=== PATIENT | female | born 1935 | race Caucasian/White ===

== ENCOUNTER 2016-10-17 11:46 | Outpatient (CLI) | payer MEDICARE, OTHER | END 2016-10-17 11:47 | disposition home or self-care (01) | DX: Z53.9 Procedure and treatment not carried out, unspecified reason (principal) ==

== ENCOUNTER 2016-11-29 15:07 | Outpatient (CLI) | payer MEDICARE, OTHER | END 2016-11-29 15:08 | disposition home or self-care (01) | DX: M31.30 Wegener's granulomatosis without renal involvement (principal); N05.9 Unspecified nephritic syndrome with unspecified morphologic changes ==

== ENCOUNTER 2016-12-11 10:15 | Outpatient (CLI) | payer MEDICARE, OTHER | END 2016-12-11 10:16 | disposition home or self-care (01) | DX: Z12.31 Encounter for screening mammogram for malignant neoplasm of breast (principal) ==

== ENCOUNTER 2017-01-16 12:30 | Outpatient (CLI) | payer MEDICARE, OTHER ==
[2017-01-16 12:47] LABS: BASOPHILS # (AUTO) 0.1 10^3/uL (0.0-0.1); BASOPHILS % (AUTO) 2.1 %; EOSINOPHILS # (AUTO) 0.3 10^3/uL (0.0-0.7); EOSINOPHILS % (AUTO) 7.1 %; HCT - HEMATOCRIT 29.9 % (37.0-47.0); HGB - HEMOGLOBIN 10.1 g/dL (12.0-16.0); LYMPHOCYTES # (AUTO) 1.1 10^3/uL (1.5-3.5); LYMPHOCYTES % (AUTO) 22.9 %; MEAN CORPUSCULAR HEMOGLOBIN 30.2 pg (27.0-31.0); MEAN CORPUSCULAR HGB CONC 33.9 g/dL (32.0-36.0); MEAN CORPUSCULAR VOLUME 89.1 fL (81.0-99.0); MONOCYTES # (AUTO) 0.4 10^3/uL (0.0-1.0); MONOCYTES % (AUTO) 8.3 %; NEUTROPHILS # (AUTO) 2.8 10^3/uL (1.5-6.6); NEUTROPHILS % (AUTO) 59.6 %; RED BLOOD COUNT 3.36 10^6/uL (4.20-5.40); RED CELL DISTRIBUTION WIDTH 12.9 % (12.0-15.0); UNCORRECTED WHITE BLOOD COUNT 4.6 x10^3/uL; WHITE BLOOD COUNT 4.6 x10^3/uL (4.8-10.8)
[2017-01-16 13:28] LABS: CALCIUM 9.3 mg/dL (8.5-10.3); CREATININE 2.4 mg/dL (0.4-1.0); POTASSIUM 4.6 mmol/L (3.5-5.0)
[2017-01-16 14:04] LABS: FERRITIN 61.9 ng/mL (11.0-306.8)
[2017-01-16 14:08] LABS: FOLATE 10.23 ng/mL (5.90 - >24.8)
== END 2017-01-16 12:31 | disposition home or self-care (01) ==
LOC: LAB 12:30
PROVIDERS: ATTEND Internal Medicine Nephrology
DX: N05.9 Unspecified nephritic syndrome with unspecified morphologic changes (principal); D63.1 Anemia in chronic kidney disease; D50.0 Iron deficiency anemia secondary to blood loss (chronic); D64.9 Anemia, unspecified; N25.81 Secondary hyperparathyroidism of renal origin
CPT/HCPCS: 36415; 80048; 82607; 82728; 82746; 83540; 83970; 84466; 85025

== ENCOUNTER 2017-02-13 11:28 | Outpatient (CLI) | payer MEDICARE, OTHER ==
[2017-02-13 13:03] LABS: HCT - HEMATOCRIT 30.8 % (37.0-47.0); HGB - HEMOGLOBIN 10.3 g/dL (12.0-16.0); MEAN CORPUSCULAR HEMOGLOBIN 30.4 pg (27.0-31.0); MEAN CORPUSCULAR HGB CONC 33.5 g/dL (32.0-36.0); MEAN CORPUSCULAR VOLUME 90.9 fL (81.0-99.0); MEAN PLATELET VOLUME 8.3 fL (7.9-10.8); RED BLOOD COUNT 3.39 10^6/uL (4.20-5.40); RED CELL DISTRIBUTION WIDTH 13.6 % (12.0-15.0); WHITE BLOOD COUNT 9.1 x10^3/uL (4.8-10.8)
[2017-02-13 13:16] LABS: CALCIUM 8.8 mg/dL (8.5-10.3); CREATININE 2.3 mg/dL (0.4-1.0); POTASSIUM 4.4 mmol/L (3.5-5.0)
== END 2017-02-13 11:29 | disposition home or self-care (01) ==
LOC: LAB 11:28
PROVIDERS: ATTEND Internal Medicine Nephrology
DX: D70.9 Neutropenia, unspecified (principal); N05.9 Unspecified nephritic syndrome with unspecified morphologic changes
CPT/HCPCS: 36415; 80048

== ENCOUNTER 2017-02-27 09:34 | Emergency (ER) | payer MEDICARE, OTHER ==
[2017-02-27] MEDS ORDERED: SODIUM CHLORIDE 0.9% 1,000 ML IV ONE ×2 (10:40→10:41)
[2017-02-27] MEDS ORDERED: ONDANSETRON 4 MG/2 ML VIAL IVP STA (10:40)
[2017-02-27] MEDS ORDERED: DEXAMETHASONE 10 MG/ML VIAL IVP STA (10:41)
[2017-02-27] MEDS ORDERED: ONDANSETRON 4 MG/2 ML VIAL ONE (10:48)
[2017-02-27] MEDS ORDERED: DEXAMETHASONE 10 MG/ML VIAL ONE (10:48)
== END 2017-02-27 13:34 | disposition home or self-care (01) ==
DX: E87.1 Hypo-osmolality and hyponatremia (principal); E86.0 Dehydration; N28.9 Disorder of kidney and ureter, unspecified; J11.1 Influenza due to unidentified influenza virus with other respiratory manifestations; I77.6 Arteritis, unspecified

== ENCOUNTER 2017-03-05 10:59 | Outpatient (CLI) | payer MEDICARE, OTHER ==
[2017-03-05 11:12] LABS: BASOPHILS % (AUTO) 0.2 %; EOSINOPHILS # (AUTO) 0.1 10^3/uL (0.0-0.7); HCT - HEMATOCRIT 29.8 % (37.0-47.0); HGB - HEMOGLOBIN 10.3 g/dL (12.0-16.0); LYMPHOCYTES # (AUTO) 0.3 10^3/uL (1.5-3.5); LYMPHOCYTES % (AUTO) 3.6 %; MEAN CORPUSCULAR HEMOGLOBIN 30.2 pg (27.0-31.0); MEAN CORPUSCULAR HGB CONC 34.4 g/dL (32.0-36.0); MEAN CORPUSCULAR VOLUME 87.8 fL (81.0-99.0); MONOCYTES # (AUTO) 0.9 10^3/uL (0.0-1.0); NEUTROPHILS # (AUTO) 6.3 10^3/uL (1.5-6.6); NEUTROPHILS % (AUTO) 83.2 %; NUCLEATED RED BLOOD CELLS AUTO 0.1 /100WBC; RED CELL DISTRIBUTION WIDTH 14.5 % (12.0-15.0); UNCORRECTED WHITE BLOOD COUNT 7.6 x10^3/uL; WHITE BLOOD COUNT 7.6 x10^3/uL (4.8-10.8)
[2017-03-05 11:23] LABS: CALCIUM 9.2 mg/dL (8.5-10.3); CREATININE 2.7 mg/dL (0.4-1.0); POTASSIUM 4.3 mmol/L (3.5-5.0)
== END 2017-03-05 11:00 | disposition home or self-care (01) ==
LOC: LAB 10:59
PROVIDERS: ATTEND Internal Medicine Nephrology
DX: N05.9 Unspecified nephritic syndrome with unspecified morphologic changes (principal)
CPT/HCPCS: 36415; 80048; 85025

== ENCOUNTER 2017-03-14 10:07 | Outpatient (CLI) | payer MEDICARE, OTHER | END 2017-03-14 10:08 | disposition home or self-care (01) | LOC: LAB 10:07 | PROVIDERS: ATTEND Internal Medicine Nephrology | DX: D64.9 Anemia, unspecified (principal) | CPT/HCPCS: 36415; 85018 ==

== ENCOUNTER 2017-03-16 07:49 | Outpatient (CLI) | payer MEDICARE, OTHER | END 2017-03-16 07:50 | disposition home or self-care (01) | LOC: LAB 07:49 | PROVIDERS: ATTEND Internal Medicine Nephrology | DX: D64.9 Anemia, unspecified (principal) | CPT/HCPCS: 36415; 85018 ==

== ENCOUNTER 2017-03-16 08:39 | Emergency (ER) | payer MEDICARE, OTHER ==
[2017-03-16] MEDS ORDERED: SODIUM CHLORIDE 0.9% 1,000 ML IV ONE (09:00)
--- NOTE | 2017-03-16 09:16 | ED Physician Documentation ---
History of Present Illness - Stated complaint Stated Complaint: NAUSEA/WEAKNESS/BLACK STOOL - Chief complaint Chief Complaint: Abd Pain - History obtained from History obtained from: Patient, Family - Additonal information Additional information: The patient is a pleasant 81-year-old female who presents with generalized weakness. She was discharged from [facility] 3 days ago after undergoing stapling of a Dieulafoy's lesion and transfusion of 4 units PRBC's. She had a hemoglobin checked this morning and it was down to 7.1. It had been 8.8 yesterday. She feels generally weak and nauseated. She has had black tarry stools since being discharged from the hospital 3 days ago. She denies abdominal pain, vomiting, shortness of breath, or chest pain. Review of Systems Constitutional: reports: Fatigue. denies: Fever Ears: denies: Tinnitus/ringing Nose: denies: Congestion Throat: denies: Sore throat Cardiac: denies: Chest pain / pressure, Palpitations Respiratory: denies: Dyspnea, Cough GI: reports: Nausea, Bloody / black stool. denies: Abdominal Pain, Vomiting : denies: Dysuria Skin: denies: Rash Musculoskeletal: denies: Back pain Neurologic: reports: Generalized weakness. denies: Focal weakness, Numbness, Headache PD PAST MEDICAL HISTORY - Past Medical History Cardiovascular: Hypertension, High cholesterol GI: GI bleed Musculoskeletal: Osteoarthritis - Past Surgical History Past Surgical History: No General: Appendectomy - Present Medications Home Medications: Ambulatory Orders Medication Instructions Recorded Confirmed Blood Pressure Med 03/11/15 03/11/15 Levothyroxine [Synthroid] 03/11/15 03/11/15 Ondansetron Odt [Zofran] 4 mg TL Q6H PRN #15 tablet 02/27/17 - Allergies Allergies/Adverse Reactions: Allergies Allergy/AdvReac Type Severity Reaction Status Date / Time codeine Allergy Unknown Verified 03/11/15 13:21 penicillin * [penicillin] Allergy Unknown Verified 03/11/15 13:20 Sulfa (Sulfonamide Allergy Unknown Verified 03/11/15 13:20 Antibiotics) - Social History Does the pt smoke?: No Smoking Status: Never smoker Does the pt drink ETOH?: Yes Does the pt have substance abuse?: No PD ED PE NORMAL - Vitals Vital signs reviewed: Yes (tachycardic.) - General General: Alert and oriented X 3, Well developed/nourished - HEENT HEENT: Atraumatic, EOMI, Pharynx benign - Neck Neck: No adenopathy, No JVD - Cardiac Cardiac: No murmur, Other (Rapid rate, regular rhythm) - Respiratory Respiratory: No respiratory distress, Clear bilaterally - Abdomen Abdomen: Soft, Non tender - Back Back: No CVA TTP - Derm Derm: No rash, Other (Pale-appearing.) - Extremities Extremities: No edema, No calf tenderness / cord - Neuro Neuro: Alert and oriented X 3, No motor deficit, Normal speech Results - Vitals Vitals: Vital Signs - 24 hr 03/16/17 03/16/17 03/16/17 10:35 11:40 11:55 Temperature 37.2 C 37.2 C Heart Rate 107 H 100 102 H Respiratory 18 18 18 Rate Blood Pressure 137/64 H 114/65 122/61 O2 Saturation 98 98 97 03/16/17 03/16/17 03/16/17 12:10 12:56 13:35 Temperature 37.2 C 37.0 C Heart Rate 99 102 H 91 Respiratory 17 18 18 Rate Blood Pressure 125/65 117/63 136/62 H O2 Saturation 97 97 97 03/16/17 13:50 Temperature 37.2 C Heart Rate 104 H Respiratory 18 Rate Blood Pressure 127/64 O2 Saturation 98 Oxygen O2 Source Room air - Labs Labs: Laboratory Tests 03/16/17 03/16/17 03/16/17 07:55 09:16 09:16 WBC 7.7 RBC 2.33 L Hgb 7.2 L Hct 21.2 L MCV 91.1 MCH 30.7 MCHC 33.7 RDW 16.5 H Plt Count 189 MPV 7.5 L Neut # 7.1 H Lymph # 0.2 L [place] # 0.2 Eos # 0.1 Baso # 0.0 Absolute Nucleated RBC 0.01 Nucleated RBCs 0.1 PT INR Sodium 136 Potassium 4.0 Chloride 104 Carbon Dioxide 23 Anion Gap 9.0 BUN 55 H Creatinine 2.2 H Estimated GFR (MDRD) 21 L Glucose 131 H Calcium 8.5 Total Bilirubin 0.3 AST 20 ALT 18 Alkaline Phosphatase 64 Total Protein 5.1 L Albumin 2.6 L Globulin 2.5 Albumin/Globulin Ratio 1.0 Lipase 101 H Blood Type Blood Type Recheck A POSITIVE Antibody Screen Crossmatch IS Only 07/21/17 07/21/17 09:16 09:45 WBC RBC Hgb Hct MCV MCH MCHC RDW Plt Count MPV Neut # Lymph # [place] # Eos # Baso # Absolute Nucleated RBC Nucleated RBCs PT 11.1 INR 1.0 Sodium Potassium Chloride Carbon Dioxide Anion Gap BUN Creatinine Estimated GFR (MDRD) Glucose Calcium Total Bilirubin AST ALT Alkaline Phosphatase Total Protein Albumin Globulin Albumin/Globulin Ratio Lipase Blood Type A POSITIVE Blood Type Recheck Antibody Screen NEGATIVE Crossmatch IS Only See Detail PD MEDICAL DECISION MAKING - ED course Complexity details: reviewed old records, reviewed results, re-evaluated patient , considered differential, d/w patient, d/w family, d/w food consultant ED course: The patient's presentation is significant for profound anemia and melena status post stapling of a Dieulafoy lesion of the duodenum. Her hemoglobin has dropped from 8.8 yesterday morning, to 7.1 this morning. She has generalized weakness and is tachycardic. She denies chest pain, dyspnea, or vomiting. Treatment in the emergency department included administration of normal saline IV, pantoprazole 80 mg bolus followed by 8 mg/h infusion, and packed red blood cell transfusion. I discussed her condition with Dr. Oliva, physiotherapy assistant at [facility]. He suggested having the patient scoped at this hospital if possible. I discussed that with the patient and her family, and they prefer to be transferred to [facility] where the initial procedure was performed, and because her sales manager, Dr. Jenkins, can be involved in her care there. I discussed her condition with Dr. Schwartz, Hospitalist at [facility], and he will accept her in transfer. Transfer forms were completed. Departure - Departure Disposition: 02 Transfer Acute Care Hosp Clinical Impression: Dieulafoy lesion of duodenum, Profound anemia GI bleeding Qualifiers: GI bleed type/associated pathology: melena Qualified Code(s): K92.1 - Melena Discharge Date/Time: 03/16/17 13:50
[2017-03-16 09:35] LABS: BASOPHILS % (AUTO) 0.6 %; EOSINOPHILS # (AUTO) 0.1 10^3/uL (0.0-0.7); EOSINOPHILS % (AUTO) 0.7 %; HCT - HEMATOCRIT 21.2 % (37.0-47.0); HGB - HEMOGLOBIN 7.2 g/dL (12.0-16.0); LYMPHOCYTES # (AUTO) 0.2 10^3/uL (1.5-3.5); LYMPHOCYTES % (AUTO) 2.7 %; MEAN CORPUSCULAR HEMOGLOBIN 30.7 pg (27.0-31.0); MEAN CORPUSCULAR HGB CONC 33.7 g/dL (32.0-36.0); MEAN CORPUSCULAR VOLUME 91.1 fL (81.0-99.0); MEAN PLATELET VOLUME 7.5 fL (7.9-10.8); MONOCYTES # (AUTO) 0.2 10^3/uL (0.0-1.0); NEUTROPHILS # (AUTO) 7.1 10^3/uL (1.5-6.6); NUCLEATED RED BLOOD CELLS AUTO 0.1 /100WBC; RED BLOOD COUNT 2.33 10^6/uL (4.20-5.40); RED CELL DISTRIBUTION WIDTH 16.5 % (12.0-15.0); UNCORRECTED WHITE BLOOD COUNT 7.7 x10^3/uL; WHITE BLOOD COUNT 7.7 x10^3/uL (4.8-10.8)
[2017-03-16 09:48] LABS: BILIRUBIN,TOTAL 0.3 mg/dL (0.2-1.0); CALCIUM 8.5 mg/dL (8.5-10.3); CREATININE 2.2 mg/dL (0.4-1.0); TOTAL PROTEIN 5.1 g/dL (6.7-8.2)
[2017-03-16 09:57] LABS: PT - PROTHROMBIN TIME 11.1 secs (9.9-12.6)
[2017-03-16] MEDS ORDERED: PANTOPRAZOLE 80 MG in SODIUM CHLORIDE 0.9% 100ML 100 ML IV STA ×2 (10:54→10:56)
[2017-03-16] MEDS ORDERED: PANTOPRAZOLE 40 MG VIAL ONE (11:06)
[2017-03-16 14:02] VITALS: BP 127/64
== END 2017-03-16 13:50 | disposition short-term general hospital (02) ==
LOC: ED 08:39
DX: K92.1 Melena (principal); I10 Essential (primary) hypertension; D64.9 Anemia, unspecified
CPT/HCPCS: 36415; 36430; 80053; 83690; 85018; 85025; 85610; 86850; 86900; 86901; 86920; 96374; 96376; 99284; 99285; P9016

== ENCOUNTER 2017-03-16 13:56 | Outpatient (CLI) | payer MEDICARE, OTHER | END 2017-03-16 13:57 | disposition short-term general hospital (02) | LOC: EMS 13:56 | PROVIDERS: ATTEND Surgery | DX: K92.2 Gastrointestinal hemorrhage, unspecified (principal); R53.1 Weakness | CPT/HCPCS: A0425; A0426 ==

== ENCOUNTER 2017-03-28 02:22 | Emergency (ER) | payer MEDICARE, OTHER ==
--- NOTE | 2017-03-28 03:25 | ED Physician Documentation ---
PD HPI ABD PAIN - Stated complaint Stated Complaint: ABD CRAMPS/CONSTIPATED - Chief complaint Chief Complaint: Abd Pain - History obtained from History obtained from: Patient, Family - History of Present Illness Timing - onset: How many days ago (2) Timing - details: Gradual onset Pain level now: 5 Quality: Cramping, Pain Location: Other (across lower abdomen) Improved by: Other (no ameliorating factors) Worsened by: Other (no exacerbating factors) Associated symptoms: Constipation, Melena, Hematochezia. No: Fever, Nausea, Vomiting, Diarrhea Similar symptoms before: Has not had sx before Recently seen: Admitted - Additional information Additional information: discharged few days ago from [place], had multiple duodenal clips placed due to bleeding ulcers which had been causing GI bleeding requiring transfusions. she c/o constipation; urge to defecate with no BM x 2 days Review of Systems Constitutional: reports: Reviewed and negative Eyes: reports: Reviewed and negative Ears: reports: Reviewed and negative Nose: reports: Reviewed and negative Throat: reports: Reviewed and negative Cardiac: reports: Reviewed and negative Respiratory: reports: Reviewed and negative GI: reports: Abdominal Pain, Constipation : reports: Reviewed and negative Skin: reports: Reviewed and negative Musculoskeletal: reports: Reviewed and negative Neurologic: reports: Reviewed and negative PD PAST MEDICAL HISTORY - Past Medical History Past Medical History: Yes Cardiovascular: Hypertension, High cholesterol Respiratory: None Neuro: None Endocrine/Autoimmune: Other GI: GI bleed 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 : None HEENT: None Psych: Depression Musculoskeletal: Osteoarthritis Derm: None - Past Surgical History Past Surgical History: No General: Appendectomy - Present Medications Home Medications: Ambulatory Orders Medication Instructions Recorded Confirmed Ondansetron Odt [Zofran] 4 mg TL Q6H PRN #15 tablet 02/27/17 03/28/17 Calcium Carbonate [Tums (Calcium 1,500 mg PO DAILY PM 03/28/17 03/28/17 Carbonate 500mg)] Folic Acid 5 mg PO DAILY 03/28/17 03/28/17 Metoclopramide [Reglan] 5 mg PO QID 03/28/17 03/28/17 Pantoprazole [Protonix] 40 mg PO DAILY 03/28/17 03/28/17 Simethicone [Gas Relief] 80 mg PO QID 03/28/17 03/28/17 - Allergies Allergies/Adverse Reactions: Allergies Allergy/AdvReac Type Severity Reaction Status Date / Time codeine Allergy Unknown Verified 03/11/15 13:21 lovastatin Allergy Hallucinati Verified 03/28/17 02:39 ons penicillin * [penicillin] Allergy Unknown Verified 03/11/15 13:20 Sulfa (Sulfonamide Allergy Unknown Verified 03/11/15 13:20 Antibiotics) - Social History Does the pt smoke?: No Smoking Status: Never smoker Does the pt drink ETOH?: Yes Does the pt have substance abuse?: No - Immunizations Immunizations are current?: Yes PD ED PE NORMAL - Vitals Vital signs reviewed: Yes - General General: Alert and oriented X 3, No acute distress, Well developed/nourished - HEENT HEENT: PERRL, EOMI, Moist mucous membranes - Neck Neck: Supple, no meningeal sign - Cardiac Cardiac: RRR, No murmur, No gallop, No rub - Respiratory Respiratory: No respiratory distress, Clear bilaterally - Abdomen Abdomen: Soft, Non distended - Derm Derm: Normal color, Warm and dry - Extremities Extremities: No tenderness to palpate, No edema - Neuro Neuro: Alert and oriented X 3 PD ED PE EXPANDED - Abdomen Abdomen: Tender to palpation, Rebound Results - Vitals Vitals: Oxygen O2 Source Room air - Labs Labs: Laboratory Tests 03/28/17 03/28/17 03:43 03:43 WBC 1.4 L* RBC 3.32 L Hgb 10.3 L Hct 30.6 L MCV 92.2 MCH 31.0 MCHC 33.6 RDW 17.0 H Plt Count 198 MPV 7.3 L Neut # 1.1 L Lymph # 0.[address] # 0.1 Eos # 0.1 Baso # 0.0 Absolute Nucleated RBC 0.00 Nucleated RBCs 0.1 Manual Slide Review Indicated WBC Morphology NORMAL APPEARANCE Platelet Estimate NORMAL (130-450,000) Platelet Morphology NORMAL APPEARANCE RBC Morph Micro Appear NORMAL APPEARANCE Sodium 140 Potassium 4.0 Chloride 107 Carbon Dioxide 25 Anion Gap 8.0 BUN 25 H Creatinine 2.4 H Estimated GFR (MDRD) 19 L Glucose 112 H Calcium 8.9 Total Bilirubin 0.4 AST 16 ALT 15 Alkaline Phosphatase 79 Total Protein 4.9 L Albumin 2.5 L Globulin 2.4 Albumin/Globulin Ratio 1.0 Lipase 57 H - Rads (name of study) CT A/P Radiology: Prelim report reviewed, See rad report PD MEDICAL DECISION MAKING - ED course Complexity details: reviewed results, re-evaluated patient, considered differential, d/w patient Departure - Departure Disposition: 02 Transfer Acute Care Hosp Clinical Impression: Renal insufficiency, Pneumoperitoneum Condition: Stable Discharge Date/Time: 03/28/17 06:07
[2017-03-28 03:51] LABS: BASOPHILS % (AUTO) 0.9 %; EOSINOPHILS # (AUTO) 0.1 10^3/uL (0.0-0.7); EOSINOPHILS % (AUTO) 5.8 %; HCT - HEMATOCRIT 30.6 % (37.0-47.0); HGB - HEMOGLOBIN 10.3 g/dL (12.0-16.0); LYMPHOCYTES # (AUTO) 0.1 10^3/uL (1.5-3.5); LYMPHOCYTES % (AUTO) 10.5 %; MEAN CORPUSCULAR HGB CONC 33.6 g/dL (32.0-36.0); MEAN CORPUSCULAR VOLUME 92.2 fL (81.0-99.0); MEAN PLATELET VOLUME 7.3 fL (7.9-10.8); MONOCYTES # (AUTO) 0.1 10^3/uL (0.0-1.0); MONOCYTES % (AUTO) 5.1 %; NEUTROPHILS # (AUTO) 1.1 10^3/uL (1.5-6.6); NEUTROPHILS % (AUTO) 77.7 %; NUCLEATED RED BLOOD CELLS AUTO 0.1 /100WBC; RED BLOOD COUNT 3.32 10^6/uL (4.20-5.40); UNCORRECTED WHITE BLOOD COUNT 1.4 x10^3/uL
[2017-03-28 03:55] LABS: WHITE BLOOD COUNT 1.4 x10^3/uL (4.8-10.8)
[2017-03-28 04:01] LABS: BILIRUBIN,TOTAL 0.4 mg/dL (0.2-1.0); CALCIUM 8.9 mg/dL (8.5-10.3); CREATININE 2.4 mg/dL (0.4-1.0); TOTAL PROTEIN 4.9 g/dL (6.7-8.2)
--- NOTE | 2017-03-28 04:25 | CT Preliminary Report ---
Exam: CT Abdomen/Pelvis W/O IMPRESSION: 1. Mild to moderate upper abdominal pneumoperitoneum, likely related to peptic ulcer disease. Stomach is edematous and there could be a gastric perforation. Patient also has multiple duodenal clips, pre sumably from previous duodenal ulcers. 2. Small hiatal hernia. 3. Small to moderate right and small left pleural effusions with adjacent atelectasis. 4. Moderate stool burden. RADIA The above critical findings were discussed with Lopez by Dr. Shreyas Cutler at 04:24 hrs on . SITE ID: [id number]
[2017-03-28 04:30] LABS: PLATELET ESTIMATE, MANUAL NORMAL (130-450,000) (NORMAL); PLATELET MORPHOLOGY NORMAL APPEARANCE (NORMAL); WBC MORPHOLOGY (MULTIPLE) NORMAL APPEARANCE (NORMAL)
--- NOTE | 2017-03-28 04:38 | CT Report ---
EXAM: CT ABDOMEN AND PELVIS (CT KUB) EXAM DATE: 03/28/2017 04:13 AM. CLINICAL HISTORY: Abdominal pain. COMPARISONS: None. TECHNIQUE: Routine axial helical CT imaging was performed through the abdomen and pelvis without IV c ontrast. No IV contrast due to reported renal insufficiency. Reconstructions: Coronal and sagittal. In accordance with CT protocol optimization, one or more of the following dose reduction techniques w ere utilized for this exam: automated exposure control, adjustment of mA and/or KV based on patient s ize, or use of iterative reconstructive technique. FINDINGS: Lung Bases: Fynss-ne-bpphtekt right and small left pleural effusions with adjacent atelectasis. Small hiatal hernia. Small pericardial effusion. Right Kidney/Ureter: No stones, hydronephrosis, or hydroureter. No perinephric fat stranding. Left Kidney/Ureter: No stones, hydronephrosis, or hydroureter. No perinephric fat stranding. Other Solid Organs: Noncontrast images of the solid organs are grossly unremarkable. Gallbladder/Bile Ducts: Unremarkable. Peritoneal Cavity: Mild to moderate upper abdominal pneumoperitoneum with an edematous stomach. Diffu se peritoneal injection and thickening. No abscess. Multiple duodenal clips. No bowel obstruction. Moderate stool burden. Pelvic Organs: No bladder stones or wall thickening. Noncontrast images of the visualized pelvic orga ns are unremarkable. Vasculature: Unremarkable. Other: Chronic-appearing moderate L1 compression fracture. No definite acute osseous abnormality. IMPRESSION: 1. Mild to moderate upper abdominal pneumoperitoneum, likely related to peptic ulcer disease. Stomach is edematous and there could be a gastric perforation. Patient also has multiple duodenal clips, pre sumably from previous duodenal ulcers. 2. Small hiatal hernia. 3. Small to moderate right and small left pleural effusions with adjacent atelectasis. 4. Moderate stool burden. RADIA The above critical findings were discussed with Lopez by Dr. Shreyas Cutler at 04:24 hrs on . Referring Provider Line: [phone] SITE ID: [id number]
[2017-03-28 05:28] VITALS: BP 131/76
[2017-03-28] MEDS ORDERED: cefTRIAXone 1 GM in SODIUM CHLORIDE 0.9% MINIBAG 100 ML IV STA (05:28)
[2017-03-28] MEDS ORDERED: metroNIDAZOLE 500 MG/100 ML 100 ML IV ONE (05:34)
[2017-03-28] MEDS ORDERED: SODIUM CHLORIDE 0.9% 1,000 ML IV STA (05:38)
[2017-03-28] MEDS ORDERED: cefTRIAXone 1 GM VIAL ONE (05:40)
[2017-03-28] MEDS ORDERED: metroNIDAZOLE 500 MG/100 ML 100 ML ONE (05:40)
[2017-03-28] MEDS ORDERED: SODIUM CHLORIDE 0.9% 30 ML ONE (05:41)
== END 2017-03-28 06:07 | disposition short-term general hospital (02) ==
LOC: ED 02:22
DX: N28.9 Disorder of kidney and ureter, unspecified (principal); J18.9 Pneumonia, unspecified organism; K66.8 Other specified disorders of peritoneum; I10 Essential (primary) hypertension
CPT/HCPCS: 36415; 74176; 80053; 83690; 85025; 96365; 96375; 99283; 99284; 99285

== ENCOUNTER 2017-03-28 06:18 | Outpatient (CLI) | payer MEDICARE, OTHER | END 2017-03-28 06:19 | disposition short-term general hospital (02) | LOC: EMS 06:18 | PROVIDERS: ATTEND Surgery | DX: R10.9 Unspecified abdominal pain (principal) | CPT/HCPCS: A0170; A0425; A0426 ==

== ENCOUNTER 2017-04-04 10:02 | Outpatient (CLI) | payer MEDICARE, OTHER ==
[2017-04-04 10:56] LABS: HCT - HEMATOCRIT 30.6 % (37.0-47.0); HGB - HEMOGLOBIN 10.2 g/dL (12.0-16.0); MEAN CORPUSCULAR HEMOGLOBIN 30.3 pg (27.0-31.0); MEAN CORPUSCULAR HGB CONC 33.4 g/dL (32.0-36.0); MEAN CORPUSCULAR VOLUME 90.6 fL (81.0-99.0); MEAN PLATELET VOLUME 7.3 fL (7.9-10.8); RED BLOOD COUNT 3.38 10^6/uL (4.20-5.40); RED CELL DISTRIBUTION WIDTH 17.4 % (12.0-15.0); WHITE BLOOD COUNT 5.8 x10^3/uL (4.8-10.8)
[2017-04-04 11:06] LABS: ALBUMIN/GLOBULIN RATIO 0.6 (1.0-2.2); BILIRUBIN,TOTAL 0.7 mg/dL (0.2-1.0); CALCIUM 8.2 mg/dL (8.5-10.3); CREATININE 1.9 mg/dL (0.4-1.0); TOTAL PROTEIN 4.9 g/dL (6.7-8.2)
== END 2017-04-04 10:03 | disposition home or self-care (01) ==
LOC: LAB 10:02
PROVIDERS: ATTEND Internal Medicine Nephrology
DX: D70.9 Neutropenia, unspecified (principal); N05.9 Unspecified nephritic syndrome with unspecified morphologic changes
CPT/HCPCS: 36415; 80053

== ENCOUNTER 2017-04-10 09:29 | Outpatient (CLI) | payer MEDICARE, OTHER ==
[2017-04-10 09:49] LABS: BASOPHILS # (AUTO) 0.1 10^3/uL (0.0-0.1); BASOPHILS % (AUTO) 1.3 %; EOSINOPHILS # (AUTO) 0.1 10^3/uL (0.0-0.7); EOSINOPHILS % (AUTO) 1.6 %; HCT - HEMATOCRIT 29.1 % (37.0-47.0); HGB - HEMOGLOBIN 9.7 g/dL (12.0-16.0); LYMPHOCYTES # (AUTO) 0.3 10^3/uL (1.5-3.5); LYMPHOCYTES % (AUTO) 3.1 %; MEAN CORPUSCULAR HEMOGLOBIN 29.8 pg (27.0-31.0); MEAN CORPUSCULAR HGB CONC 33.2 g/dL (32.0-36.0); MEAN CORPUSCULAR VOLUME 89.8 fL (81.0-99.0); MEAN PLATELET VOLUME 7.4 fL (7.9-10.8); MONOCYTES # (AUTO) 0.6 10^3/uL (0.0-1.0); MONOCYTES % (AUTO) 6.5 %; NEUTROPHILS # (AUTO) 7.9 10^3/uL (1.5-6.6); NEUTROPHILS % (AUTO) 87.5 %; RED BLOOD COUNT 3.25 10^6/uL (4.20-5.40); RED CELL DISTRIBUTION WIDTH 17.6 % (12.0-15.0); UNCORRECTED WHITE BLOOD COUNT 9.1 x10^3/uL; WHITE BLOOD COUNT 9.1 x10^3/uL (4.8-10.8)
[2017-04-10 09:59] LABS: CALCIUM 7.9 mg/dL (8.5-10.3); CREATININE 2.2 mg/dL (0.4-1.0); POTASSIUM 3.5 mmol/L (3.5-5.0)
== END 2017-04-10 09:30 | disposition home or self-care (01) ==
LOC: LAB 09:29
PROVIDERS: ATTEND Internal Medicine Nephrology
DX: N05.9 Unspecified nephritic syndrome with unspecified morphologic changes (principal); D70.9 Neutropenia, unspecified
CPT/HCPCS: 36415; 80048; 85025

== ENCOUNTER 2017-05-03 10:57 | Outpatient (CLI) | payer MEDICARE, OTHER ==
[2017-05-03 11:21] LABS: CALCIUM 8.4 mg/dL (8.5-10.3); HCT - HEMATOCRIT 28.6 % (37.0-47.0); HGB - HEMOGLOBIN 9.4 g/dL (12.0-16.0); MEAN CORPUSCULAR HEMOGLOBIN 29.2 pg (27.0-31.0); MEAN CORPUSCULAR HGB CONC 32.7 g/dL (32.0-36.0); MEAN CORPUSCULAR VOLUME 89.2 fL (81.0-99.0); MEAN PLATELET VOLUME 7.3 fL (7.9-10.8); POTASSIUM 4.7 mmol/L (3.5-5.0); RED BLOOD COUNT 3.21 10^6/uL (4.20-5.40); RED CELL DISTRIBUTION WIDTH 18.5 % (12.0-15.0)
== END 2017-05-03 10:58 | disposition home or self-care (01) ==
LOC: LAB 10:57
PROVIDERS: ATTEND Internal Medicine Nephrology
DX: N05.9 Unspecified nephritic syndrome with unspecified morphologic changes (principal); D63.1 Anemia in chronic kidney disease; D70.9 Neutropenia, unspecified
CPT/HCPCS: 36415; 80048

== ENCOUNTER 2017-08-07 13:16 | Outpatient (CLI) | payer MEDICARE, OTHER ==
[2017-08-07 13:29] LABS: BASOPHILS % (AUTO) 0.8 %; EOSINOPHILS # (AUTO) 0.2 10^3/uL (0.0-0.7); EOSINOPHILS % (AUTO) 5.4 %; HCT - HEMATOCRIT 33.2 % (37.0-47.0); HGB - HEMOGLOBIN 11.2 g/dL (12.0-16.0); LYMPHOCYTES # (AUTO) 0.7 10^3/uL (1.5-3.5); LYMPHOCYTES % (AUTO) 18.1 %; MEAN CORPUSCULAR HEMOGLOBIN 28.7 pg (27.0-31.0); MEAN CORPUSCULAR HGB CONC 33.7 g/dL (32.0-36.0); MEAN CORPUSCULAR VOLUME 85.1 fL (81.0-99.0); MEAN PLATELET VOLUME 7.4 fL (7.9-10.8); MONOCYTES # (AUTO) 0.4 10^3/uL (0.0-1.0); MONOCYTES % (AUTO) 9.4 %; NEUTROPHILS # (AUTO) 2.5 10^3/uL (1.5-6.6); NEUTROPHILS % (AUTO) 66.3 %; RED BLOOD COUNT 3.89 10^6/uL (4.20-5.40); RED CELL DISTRIBUTION WIDTH 14.6 % (12.0-15.0); UNCORRECTED WHITE BLOOD COUNT 3.7 x10^3/uL; WHITE BLOOD COUNT 3.7 x10^3/uL (4.8-10.8)
[2017-08-07 13:38] LABS: CREATININE 1.9 mg/dL (0.4-1.0); POTASSIUM 4.3 mmol/L (3.5-5.0)
== END 2017-08-07 13:17 | disposition home or self-care (01) ==
LOC: LAB 13:16
PROVIDERS: ATTEND Internal Medicine Nephrology
DX: N05.9 Unspecified nephritic syndrome with unspecified morphologic changes (principal); D70.9 Neutropenia, unspecified; E03.9 Hypothyroidism, unspecified
CPT/HCPCS: 36415; 80048; 84443; 85025

== ENCOUNTER 2017-08-29 07:31 | Day surgery (SDC) | payer MEDICARE, OTHER ==
[2017-08-29] MEDS ORDERED: LACTATED RINGERS 1,000 ML IV ONE (07:52)
[2017-08-29] MEDS ORDERED: fentaNYL 100 MCG/2 ML VIAL IVP ONE (08:43)
[2017-08-29] MEDS ORDERED: MIDAZOLAM 2 MG/2 ML VIAL IVP ONE (08:43)
[2017-08-29 09:37] VITALS: BP 127/66
== END 2017-08-29 07:32 | disposition home or self-care (01) ==
LOC: SDS 07:31
PROVIDERS: ATTEND Internal Medicine
PROC: 0DJ08ZZ Inspection of Upper Intestinal Tract, Via Natural or Artificial Opening Endoscopic (ICD-10-PCS; principal; 2017-08-29 08:30)
DX: D50.9 Iron deficiency anemia, unspecified (principal); K44.9 Diaphragmatic hernia without obstruction or gangrene; Z87.19 Personal history of other diseases of the digestive system
CPT/HCPCS: 43235; J7120

== ENCOUNTER 2017-09-12 09:20 | Outpatient (CLI) | payer MEDICARE, OTHER | END 2017-09-12 09:21 | disposition home or self-care (01) | LOC: LAB 09:20 | PROVIDERS: ATTEND Internal Medicine Nephrology | DX: E03.9 Hypothyroidism, unspecified (principal) | CPT/HCPCS: 36415; 84443 ==

== ENCOUNTER 2017-10-29 10:38 | Outpatient (CLI) | payer MEDICARE, OTHER ==
[2017-10-29 10:55] LABS: HGB - HEMOGLOBIN 11.7 g/dL (12.0-16.0); MEAN CORPUSCULAR HEMOGLOBIN 29.4 pg (27.0-31.0); MEAN CORPUSCULAR HGB CONC 33.7 g/dL (32.0-36.0); MEAN CORPUSCULAR VOLUME 87.3 fL (81.0-99.0); MEAN PLATELET VOLUME 7.7 fL (7.9-10.8); RED BLOOD COUNT 3.97 10^6/uL (4.20-5.40); RED CELL DISTRIBUTION WIDTH 14.3 % (12.0-15.0); WHITE BLOOD COUNT 3.9 x10^3/uL (4.8-10.8)
[2017-10-29 11:03] LABS: CREATININE 1.8 mg/dL (0.4-1.0)
== END 2017-10-29 10:39 | disposition home or self-care (01) ==
LOC: LAB 10:38
PROVIDERS: ATTEND Internal Medicine Nephrology
DX: N05.9 Unspecified nephritic syndrome with unspecified morphologic changes (principal); D70.9 Neutropenia, unspecified; D63.1 Anemia in chronic kidney disease
CPT/HCPCS: 36415; 80048

== ENCOUNTER 2018-02-04 | Emergency (ER) | payer MEDICARE, OTHER ==
--- NOTE | 2018-02-04 15:13 | ED Physician Documentation ---
PD HPI UPPER EXT INJURY - Stated complaint Stated Complaint: L ARM SCRATCH - Chief complaint Chief Complaint: Laceration - History obtained from History obtained from: Patient, Friend - History of Present Illness Location: Left, Forearm Type of injury: Other (dog scratch) Where injury occurred: Home Timing - onset: How many days ago (3) Timing - duration: Days (3) Timing - details: Abrupt onset, Still present Improved by: Rest, Dressing Worsened by: Moving, Palpating Associated symptoms: No: Weakness, Numbness, Tingling, Swelling, Discolored Similar symptoms before: Has not had sx before Recently seen: Not recently seen - Additonal information Additional information: 82-year-old female who has a Siberian husky puppy for a PET was playing with her dog when the dog scratched her arm. She has some thin skin and it tore the skin she is placed the skin back and she has been wearing a Band-Aid over this. A friend of hers has seen her wound now and has asked her to come to the emergency department for alternative forms of treatment. Review of Systems Constitutional: denies: Fever, Chills Eyes: denies: Decreased vision Ears: denies: Ear pain Nose: denies: Congestion Respiratory: denies: Cough GI: denies: Vomiting Skin: reports: Laceration (s). denies: Rash Musculoskeletal: reports: Extremity pain. 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 : None HEENT: None Psych: Depression Musculoskeletal: Osteoarthritis Derm: Eczema - Past Surgical History Past Surgical History: No General: Appendectomy - Present Medications Home Medications: Ambulatory Orders Medication Instructions Recorded Confirmed Pantoprazole [Protonix] 40 mg PO DAILY 03/28/17 08/29/17 Levothyroxine [Synthroid] 75 mcg PO QDAC 06/15/17 06/15/17 Nifedipine [Nifedipine ER] 30 mg PO DAILY 08/28/17 08/29/17 Cholecalciferol [Vitamin D3] 5,000 unit PO 08/29/17 - Allergies Allergies/Adverse Reactions: Allergies Allergy/AdvReac Type Severity Reaction Status Date / Time codeine Allergy Unknown Verified 02/04/18 14:49 lovastatin Allergy Hallucinati Verified 06/11/18 14:49 ons penicillin * [penicillin] Allergy Unknown Verified 02/04/18 14:49 prednisone Allergy Unknown Verified 02/04/18 14:49 Sulfa (Sulfonamide Allergy Unknown Verified 02/04/18 14:49 Antibiotics) - Social History Does the pt smoke?: No Smoking Status: Never smoker Does the pt drink ETOH?: Yes Does the pt have substance abuse?: No - Immunizations Immunizations are current?: Yes PD ED PE NORMAL - Vitals Vital signs reviewed: Yes (tachy and hypertensive ) - General General: No acute distress, Well developed/nourished - HEENT HEENT: Atraumatic, PERRL - Respiratory Respiratory: No respiratory distress - Derm Derm: Normal color, Warm and dry, No rash - Extremities Extremities: No deformity, No edema, Other (There are 2 thin skin tears on the lft forearm over the brachioradialis.There is no surrounding erythema or drainage to suggest infection. The wound appears to be granulating well. There is a mismatch to the orientation of the flaps. distal n/v is intact. ) - Neuro Neuro: No motor deficit, No sensory deficit Eye Opening: Spontaneous Motor: Obeys Commands Verbal: Oriented GCS Score: 15 - Psych Psych: Normal mood, Normal affect Results - Vitals Vitals: Vital Signs - 24 hr 02/04/18 02/04/18 14:45 15:25 Temperature 36.7 C 36.6 C Heart Rate 109 H 96 Respiratory 18 18 Rate Blood Pressure 147/80 H 153/80 H O2 Saturation 96 97 Oxygen O2 Source Room air PD MEDICAL DECISION MAKING - ED course Complexity details: re-evaluated patient, considered differential, d/w patient ED course: 82-year-old female with thin skin avulsion to the left forearm has a flap mismatch at 3 days into the wound. I have offered to open the wound again and realign the flaps and the patient is not interested in this. She is interested in localized wound care and instructions on treatment. I have indicated to the patient that she should heal up with his well and that time for healing is approximately 3 weeks. - Sepsis Event Vital Signs: Vital Signs - 24 hr 18 02/04/18 14:45 15:25 Temperature 36.7 C 36.6 C Heart Rate 109 H 96 Respiratory 18 18 Rate Blood Pressure 147/80 H 153/80 H O2 Saturation 96 97 Oxygen O2 Source Room air Departure - Departure Disposition: 01 Home, Self Care Clinical Impression: Avulsion of skin of forearm Qualifiers: Encounter type: initial encounter Laterality: left Qualified Code(s): S51.802A - Unspecified open wound of left forearm, initial encounter Condition: Stable Instructions: ED Avulsion Dermal Follow-Up: Yanira Lake PA [Primary Care Provider] - Discharge Date/Time: 02/04/18 15:28
== END 2018-02-04 15:28 | disposition home or self-care (01) ==
CPT/HCPCS: 99281; 99283

== ENCOUNTER 2018-04-30 09:54 | Outpatient (CLI) | payer MEDICARE, OTHER ==
[2018-04-30 10:45] LABS: CALCIUM 9.2 mg/dL (8.5-10.3); CREATININE 2.2 mg/dL (0.4-1.0)
== END 2018-04-30 09:55 | disposition home or self-care (01) ==
LOC: LAB 09:54
PROVIDERS: ATTEND Internal Medicine Nephrology
DX: N05.9 Unspecified nephritic syndrome with unspecified morphologic changes (principal)
CPT/HCPCS: 36415; 80048

== ENCOUNTER 2018-06-03 10:08 | Outpatient (CLI) | payer MEDICARE, OTHER ==
[2018-06-03 10:31] LABS: BASOPHILS % (AUTO) 1.1 %; EOSINOPHILS # (AUTO) 0.2 10^3/uL (0.0-0.7); EOSINOPHILS % (AUTO) 5.3 %; HGB - HEMOGLOBIN 12.2 g/dL (12.0-16.0); LYMPHOCYTES # (AUTO) 0.6 10^3/uL (1.5-3.5); LYMPHOCYTES % (AUTO) 14.6 %; MEAN CORPUSCULAR HEMOGLOBIN 30.3 pg (27.0-31.0); MEAN CORPUSCULAR HGB CONC 33.8 g/dL (32.0-36.0); MEAN CORPUSCULAR VOLUME 89.5 fL (81.0-99.0); MEAN PLATELET VOLUME 8.3 fL (7.9-10.8); MONOCYTES # (AUTO) 0.3 10^3/uL (0.0-1.0); MONOCYTES % (AUTO) 7.8 %; NEUTROPHILS % (AUTO) 71.2 %; PLT - PLATELET COUNT 207 10^3/uL (130-450); RED BLOOD COUNT 4.02 10^6/uL (4.20-5.40); RED CELL DISTRIBUTION WIDTH 13.6 % (12.0-15.0); WHITE BLOOD COUNT 4.3 x10^3/uL (4.8-10.8)
[2018-06-03 10:46] LABS: CREATININE 2.1 mg/dL (0.4-1.0); PHOSPHORUS 4.3 mg/dL (2.5-4.6)
[2018-06-03 11:03] LABS: THYROID STIMULATING HORMONE 5.46 uIU/mL (0.34-5.60)
== END 2018-06-03 10:09 | disposition home or self-care (01) ==
LOC: LAB 10:08
PROVIDERS: ATTEND Internal Medicine Nephrology
DX: D70.9 Neutropenia, unspecified (principal); D64.9 Anemia, unspecified; E83.30 Disorder of phosphorus metabolism, unspecified; D63.1 Anemia in chronic kidney disease; E03.9 Hypothyroidism, unspecified; N25.81 Secondary hyperparathyroidism of renal origin
CPT/HCPCS: 36415; 82306; 82565; 82607; 83970; 84100; 84443; 85025

== ENCOUNTER 2018-09-12 13:38 | Outpatient (CLI) | payer MEDICARE, OTHER ==
[2018-09-12 14:22] LABS: CREATININE 2.4 mg/dL (0.4-1.0)
== END 2018-09-12 13:39 | disposition home or self-care (01) ==
LOC: LAB 13:38
PROVIDERS: ATTEND Internal Medicine Nephrology
DX: N05.9 Unspecified nephritic syndrome with unspecified morphologic changes (principal)
CPT/HCPCS: 36415; 82565

== ENCOUNTER 2018-11-13 09:50 | Outpatient (CLI) | payer MEDICARE, OTHER ==
[2018-11-13 10:13] LABS: HGB - HEMOGLOBIN 11.2 g/dL (12.0-16.0); MEAN CORPUSCULAR HEMOGLOBIN 29.9 pg (27.0-31.0); MEAN CORPUSCULAR HGB CONC 33.3 g/dL (32.0-36.0); MEAN CORPUSCULAR VOLUME 89.8 fL (81.0-99.0); MEAN PLATELET VOLUME 7.9 fL (7.9-10.8); RED BLOOD COUNT 3.76 10^6/uL (4.20-5.40); RED CELL DISTRIBUTION WIDTH 13.5 % (12.0-15.0); WHITE BLOOD COUNT 4.1 x10^3/uL (4.8-10.8)
[2018-11-13 10:26] LABS: CALCIUM 9.4 mg/dL (8.5-10.3); CREATININE 2.5 mg/dL (0.4-1.0); PHOSPHORUS 3.7 mg/dL (2.5-4.6)
== END 2018-11-13 09:51 | disposition home or self-care (01) ==
LOC: LAB 09:50
PROVIDERS: ATTEND Internal Medicine Nephrology
DX: N05.9 Unspecified nephritic syndrome with unspecified morphologic changes (principal); D70.9 Neutropenia, unspecified; D63.1 Anemia in chronic kidney disease; E83.30 Disorder of phosphorus metabolism, unspecified; N25.81 Secondary hyperparathyroidism of renal origin
CPT/HCPCS: 36415; 80048; 83970; 84100; 85027

== ENCOUNTER 2019-01-14 11:52 | Outpatient (CLI) | payer MEDICARE, OTHER ==
[2019-01-14 12:42] LABS: CREATININE 2.3 mg/dL (0.4-1.0)
== END 2019-01-14 11:53 | disposition home or self-care (01) ==
LOC: LAB 11:52
PROVIDERS: ATTEND Internal Medicine Nephrology
DX: N05.9 Unspecified nephritic syndrome with unspecified morphologic changes (principal)
CPT/HCPCS: 36415; 82565

== ENCOUNTER 2019-02-25 10:22 | Outpatient (CLI) | payer MEDICARE, OTHER ==
[2019-02-25 11:00] LABS: CREATININE 2.5 mg/dL (0.4-1.0)
== END 2019-02-25 10:23 | disposition home or self-care (01) ==
LOC: LAB 10:22
PROVIDERS: ATTEND Internal Medicine Nephrology
DX: N05.9 Unspecified nephritic syndrome with unspecified morphologic changes (principal)
CPT/HCPCS: 36415; 82565

== ENCOUNTER 2019-02-26 12:53 | Outpatient (CLI) | payer MEDICARE, OTHER | END 2019-02-26 12:54 | disposition home or self-care (01) | LOC: LAB 12:53 | PROVIDERS: ATTEND Internal Medicine Nephrology | DX: D64.9 Anemia, unspecified (principal); D72.819 Decreased white blood cell count, unspecified | CPT/HCPCS: 36415; 82306; 82607 ==

== ENCOUNTER 2019-04-03 13:30 | Outpatient (CLI) | payer MEDICARE, OTHER ==
[2019-04-03 13:54] LABS: BASOPHILS # (AUTO) 0.1 10^3/uL (0.0-0.1); EOSINOPHILS # (AUTO) 0.3 10^3/uL (0.0-0.7); EOSINOPHILS % (AUTO) 5.1 %; HGB - HEMOGLOBIN 11.5 g/dL (12.0-16.0); LYMPHOCYTES # (AUTO) 0.9 10^3/uL (1.5-3.5); LYMPHOCYTES % (AUTO) 17.5 %; MEAN CORPUSCULAR HEMOGLOBIN 29.9 pg (27.0-31.0); MEAN CORPUSCULAR VOLUME 93.2 fL (81.0-99.0); MEAN PLATELET VOLUME 10.2 fL (7.9-10.8); MONOCYTES # (AUTO) 0.4 10^3/uL (0.0-1.0); NEUTROPHILS # (AUTO) 3.5 10^3/uL (1.5-6.6); PLT - PLATELET COUNT 208 10^3/uL (130-450); RED BLOOD COUNT 3.85 10^6/uL (4.20-5.40); RED CELL DISTRIBUTION WIDTH 12.8 % (12.0-15.0); WHITE BLOOD COUNT 5.1 x10^3/uL (4.8-10.8)
[2019-04-03 14:05] LABS: CALCIUM 9.9 mg/dL (8.5-10.3); CREATININE 2.4 mg/dL (0.4-1.0)
== END 2019-04-03 13:31 | disposition home or self-care (01) ==
LOC: LAB 13:30
PROVIDERS: ATTEND Internal Medicine Nephrology
DX: N05.9 Unspecified nephritic syndrome with unspecified morphologic changes (principal); D70.9 Neutropenia, unspecified; D63.1 Anemia in chronic kidney disease
CPT/HCPCS: 36415; 80048; 85025

== ENCOUNTER 2019-05-26 10:28 | Outpatient (CLI) | payer MEDICARE, OTHER ==
[2019-05-26 11:17] LABS: CREATININE 2.6 mg/dL (0.4-1.0)
== END 2019-05-26 10:29 | disposition home or self-care (01) ==
LOC: LAB 10:28
PROVIDERS: ATTEND Internal Medicine Nephrology
DX: N05.9 Unspecified nephritic syndrome with unspecified morphologic changes (principal)
CPT/HCPCS: 36415; 82565

== ENCOUNTER 2019-08-25 11:00 | Outpatient (CLI) | payer MEDICARE, OTHER ==
[2019-08-25 11:26] LABS: CALCIUM 9.3 mg/dL (8.5-10.3); CREATININE 2.6 mg/dL (0.4-1.0)
== END 2019-08-25 11:01 | disposition home or self-care (01) ==
LOC: LAB 11:00
PROVIDERS: ATTEND Internal Medicine Nephrology
DX: N05.9 Unspecified nephritic syndrome with unspecified morphologic changes (principal); D70.9 Neutropenia, unspecified
CPT/HCPCS: 36415; 80048; 85018

== ENCOUNTER 2019-09-26 11:03 | Outpatient (CLI) | payer MEDICARE, OTHER ==
[2019-09-26 11:36] LABS: CALCIUM 8.9 mg/dL (8.5-10.3); CREATININE 2.6 mg/dL (0.4-1.0)
== END 2019-09-26 11:04 | disposition home or self-care (01) ==
LOC: LAB 11:03
PROVIDERS: ATTEND Internal Medicine Nephrology
DX: N05.9 Unspecified nephritic syndrome with unspecified morphologic changes (principal); D70.9 Neutropenia, unspecified
CPT/HCPCS: 36415; 80048; 85018

== ENCOUNTER 2020-01-23 10:43 | Outpatient (CLI) | payer MEDICARE, OTHER ==
[2020-01-23 10:58] LABS: BASOPHILS # (AUTO) 0.1 10^3/uL (0.0-0.1); BASOPHILS % (AUTO) 1.2 %; EOSINOPHILS # (AUTO) 0.3 10^3/uL (0.0-0.7); EOSINOPHILS % (AUTO) 6.3 %; HGB - HEMOGLOBIN 11.2 g/dL (12.0-16.0); LYMPHOCYTES % (AUTO) 22.8 %; MEAN CORPUSCULAR HEMOGLOBIN 29.7 pg (27.0-31.0); MEAN CORPUSCULAR HGB CONC 31.3 g/dL (32.0-36.0); MEAN PLATELET VOLUME 10.1 fL (7.9-10.8); MONOCYTES # (AUTO) 0.4 10^3/uL (0.0-1.0); MONOCYTES % (AUTO) 8.7 %; NEUTROPHILS # (AUTO) 2.6 10^3/uL (1.5-6.6); NEUTROPHILS % (AUTO) 60.8 %; PLT - PLATELET COUNT 218 10^3/uL (130-450); RED BLOOD COUNT 3.77 10^6/uL (4.20-5.40); RED CELL DISTRIBUTION WIDTH 12.2 % (12.0-15.0); WHITE BLOOD COUNT 4.3 x10^3/uL (4.8-10.8)
[2020-01-23 11:09] LABS: CREATININE 3.1 mg/dL (0.4-1.0); PHOSPHORUS 4.2 mg/dL (2.5-4.6)
== END 2020-01-23 10:44 | disposition home or self-care (01) ==
LOC: LAB 10:43
PROVIDERS: ATTEND Internal Medicine Nephrology
DX: E83.30 Disorder of phosphorus metabolism, unspecified (principal); N05.9 Unspecified nephritic syndrome with unspecified morphologic changes; D70.9 Neutropenia, unspecified; D63.1 Anemia in chronic kidney disease; N25.81 Secondary hyperparathyroidism of renal origin
CPT/HCPCS: 36415; 80048; 83970; 84100; 85025

== ENCOUNTER 2020-03-31 10:18 | Outpatient (CLI) | payer MEDICARE, OTHER ==
[2020-03-31 10:31] LABS: HGB - HEMOGLOBIN 11.3 g/dL (12.0-16.0); MEAN CORPUSCULAR HEMOGLOBIN 29.5 pg (27.0-31.0); MEAN CORPUSCULAR VOLUME 95.3 fL (81.0-99.0); MEAN PLATELET VOLUME 10.2 fL (7.9-10.8); RED BLOOD COUNT 3.83 10^6/uL (4.20-5.40); RED CELL DISTRIBUTION WIDTH 12.6 % (12.0-15.0); WHITE BLOOD COUNT 5.1 x10^3/uL (4.8-10.8)
[2020-03-31 10:46] LABS: CALCIUM 9.3 mg/dL (8.5-10.3); CREATININE 2.9 mg/dL (0.4-1.0)
== END 2020-03-31 10:19 | disposition home or self-care (01) ==
LOC: LAB 10:18
PROVIDERS: ATTEND Internal Medicine Nephrology
DX: N05.9 Unspecified nephritic syndrome with unspecified morphologic changes (principal); D70.9 Neutropenia, unspecified; D63.1 Anemia in chronic kidney disease
CPT/HCPCS: 36415; 80048; 85027

== ENCOUNTER 2020-06-29 10:35 | Outpatient (CLI) | payer MEDICARE, OTHER ==
[2020-06-29 10:45] LABS: BASOPHILS # (AUTO) 0.1 10^3/uL (0.0-0.1); BASOPHILS % (AUTO) 1.1 %; EOSINOPHILS # (AUTO) 0.3 10^3/uL (0.0-0.7); EOSINOPHILS % (AUTO) 6.8 %; HGB - HEMOGLOBIN 10.3 g/dL (12.0-16.0); LYMPHOCYTES # (AUTO) 0.8 10^3/uL (1.5-3.5); MEAN CORPUSCULAR HGB CONC 31.2 g/dL (32.0-36.0); MEAN CORPUSCULAR VOLUME 96.2 fL (81.0-99.0); MEAN PLATELET VOLUME 9.5 fL (7.9-10.8); MONOCYTES # (AUTO) 0.3 10^3/uL (0.0-1.0); MONOCYTES % (AUTO) 6.8 %; NEUTROPHILS # (AUTO) 2.9 10^3/uL (1.5-6.6); NEUTROPHILS % (AUTO) 66.1 %; PLT - PLATELET COUNT 199 10^3/uL (130-450); RED BLOOD COUNT 3.43 10^6/uL (4.20-5.40); RED CELL DISTRIBUTION WIDTH 12.5 % (12.0-15.0); WHITE BLOOD COUNT 4.4 x10^3/uL (4.8-10.8)
[2020-06-29 10:54] LABS: CALCIUM 9.1 mg/dL (8.5-10.3); CREATININE 3.4 mg/dL (0.4-1.0)
== END 2020-06-29 10:36 | disposition home or self-care (01) ==
LOC: LAB 10:35
PROVIDERS: ATTEND Internal Medicine Nephrology
DX: D70.9 Neutropenia, unspecified (principal); D63.1 Anemia in chronic kidney disease; N05.9 Unspecified nephritic syndrome with unspecified morphologic changes
CPT/HCPCS: 36415; 80048; 85025

== ENCOUNTER 2020-07-29 10:59 | Outpatient (CLI) | payer MEDICARE, OTHER ==
[2020-07-29 12:00] LABS: CALCIUM 9.1 mg/dL (8.5-10.3); CREATININE 3.5 mg/dL (0.4-1.0)
== END 2020-07-29 11:00 | disposition home or self-care (01) ==
LOC: LAB 10:59
PROVIDERS: ATTEND Internal Medicine Nephrology
DX: N05.9 Unspecified nephritic syndrome with unspecified morphologic changes (principal)
CPT/HCPCS: 36415; 80048

== ENCOUNTER 2020-09-01 11:27 | Outpatient (CLI) | payer MEDICARE, OTHER ==
[2020-09-01 11:49] LABS: BASOPHILS # (AUTO) 0.1 10^3/uL (0.0-0.1); BASOPHILS % (AUTO) 1.2 %; EOSINOPHILS # (AUTO) 0.5 10^3/uL (0.0-0.7); EOSINOPHILS % (AUTO) 9.1 %; HGB - HEMOGLOBIN 9.8 g/dL (12.0-16.0); LYMPHOCYTES # (AUTO) 0.9 10^3/uL (1.5-3.5); LYMPHOCYTES % (AUTO) 18.6 %; MEAN CORPUSCULAR HEMOGLOBIN 30.5 pg (27.0-31.0); MEAN CORPUSCULAR HGB CONC 31.9 g/dL (32.0-36.0); MEAN CORPUSCULAR VOLUME 95.6 fL (81.0-99.0); MEAN PLATELET VOLUME 10.3 fL (7.9-10.8); MONOCYTES # (AUTO) 0.4 10^3/uL (0.0-1.0); MONOCYTES % (AUTO) 8.1 %; NEUTROPHILS # (AUTO) 3.1 10^3/uL (1.5-6.6); NEUTROPHILS % (AUTO) 62.6 %; PLT - PLATELET COUNT 189 10^3/uL (130-450); RED BLOOD COUNT 3.21 10^6/uL (4.20-5.40); RED CELL DISTRIBUTION WIDTH 12.4 % (12.0-15.0); WHITE BLOOD COUNT 4.9 x10^3/uL (4.8-10.8)
[2020-09-01 12:01] LABS: CALCIUM 8.9 mg/dL (8.5-10.3); CREATININE 3.4 mg/dL (0.4-1.0)
== END 2020-09-01 11:28 | disposition home or self-care (01) ==
LOC: LAB 11:27
PROVIDERS: ATTEND Internal Medicine Nephrology
DX: N05.9 Unspecified nephritic syndrome with unspecified morphologic changes (principal); D70.9 Neutropenia, unspecified; D63.1 Anemia in chronic kidney disease
CPT/HCPCS: 36415; 80048; 85025

== ENCOUNTER 2020-09-27 08:00 | Outpatient (CLI) | payer MEDICARE, OTHER ==
[2020-09-27 12:05] LABS: BASOPHILS % (AUTO) 0.9 %; EOSINOPHILS # (AUTO) 0.5 10^3/uL (0.0-0.7); EOSINOPHILS % (AUTO) 10.1 %; HGB - HEMOGLOBIN 10.2 g/dL (12.0-16.0); LYMPHOCYTES # (AUTO) 0.8 10^3/uL (1.5-3.5); LYMPHOCYTES % (AUTO) 17.8 %; MEAN CORPUSCULAR HEMOGLOBIN 30.4 pg (27.0-31.0); MEAN CORPUSCULAR HGB CONC 31.4 g/dL (32.0-36.0); MEAN PLATELET VOLUME 10.2 fL (7.9-10.8); MONOCYTES # (AUTO) 0.3 10^3/uL (0.0-1.0); MONOCYTES % (AUTO) 6.4 %; NEUTROPHILS % (AUTO) 64.4 %; PLT - PLATELET COUNT 188 10^3/uL (130-450); RED BLOOD COUNT 3.35 10^6/uL (4.20-5.40); RED CELL DISTRIBUTION WIDTH 12.3 % (12.0-15.0); WHITE BLOOD COUNT 4.7 x10^3/uL (4.8-10.8)
[2020-09-27 12:38] LABS: CALCIUM 9.1 mg/dL (8.5-10.3); CREATININE 3.4 mg/dL (0.4-1.0)
== END 2020-09-27 23:59 | disposition home or self-care (01) ==
LOC: LAB 08:00
PROVIDERS: ATTEND Internal Medicine Nephrology
DX: N05.9 Unspecified nephritic syndrome with unspecified morphologic changes (principal); D70.9 Neutropenia, unspecified; D63.1 Anemia in chronic kidney disease
CPT/HCPCS: 36415; 80048; 85025

== ENCOUNTER 2020-10-12 07:00 | Outpatient (CLI) | payer MEDICARE, OTHER ==
[2020-10-12 10:41] LABS: % IRON SATURATION 24 % (20-50); ALBUMIN 4.1 g/dL (3.2-5.5); ALBUMIN/GLOBULIN RATIO 1.2 (1.0-2.2); ALKALINE PHOSPHATASE 84 IU/L (42-121); ALT ALANINE AMINOTRANSFERASE < 10 IU/L (10-60); AST ASPARTATE AMINOTRANSFERASE 14 IU/L (10-42); BILIRUBIN,TOTAL 0.7 mg/dL (0.2-1.0); BUN - BLOOD UREA NITROGEN 71 mg/dL (6-20); CALCIUM 9.3 mg/dL (8.5-10.3); CARBON DIOXIDE - CO2 19 mmol/L (21-32); CHLORIDE 110 mmol/L (101-111); CREATININE 3.5 mg/dL (0.4-1.0); GLUCOSE 103 mg/dL (70-100); IRON 76 ug/dL (28-170); PHOSPHORUS 4.3 mg/dL (2.5-4.6); TOTAL IRON BINDING CAPACITY 314 ug/dL (250-450); TOTAL PROTEIN 7.5 g/dL (6.7-8.2); TRANSFERRIN 224 mg/dL (192-382)
[2020-10-12 10:56] LABS: FERRITIN 179.3 ng/mL (11.0-306.8)
[2020-10-12 11:00] LABS: FOLATE 8.85 ng/mL (5.90 - >24.8)
== END 2020-10-12 23:59 | disposition home or self-care (01) ==
LOC: LAB 07:00
PROVIDERS: ATTEND Internal Medicine Nephrology
DX: E55.9 Vitamin D deficiency, unspecified (principal); D50.0 Iron deficiency anemia secondary to blood loss (chronic); E83.30 Disorder of phosphorus metabolism, unspecified; N25.81 Secondary hyperparathyroidism of renal origin; N05.9 Unspecified nephritic syndrome with unspecified morphologic changes
CPT/HCPCS: 36415; 80053; 82306; 82607; 82728; 82746; 83540; 83970; 84100; 84466

== ENCOUNTER 2020-11-26 13:59 | Outpatient (CLI) | payer MEDICARE, OTHER ==
[2020-11-26 14:29] LABS: CALCIUM 9.7 mg/dL (8.5-10.3); CREATININE 3.9 mg/dL (0.4-1.0); POTASSIUM 5.3 mmol/L (3.5-5.0)
== END 2020-11-26 14:00 | disposition home or self-care (01) ==
LOC: LAB 13:59
PROVIDERS: ATTEND Internal Medicine Nephrology
DX: N05.9 Unspecified nephritic syndrome with unspecified morphologic changes (principal)
CPT/HCPCS: 36415; 80048

== ENCOUNTER 2021-01-11 09:56 | Outpatient (CLI) | payer MEDICARE, OTHER ==
[2021-01-11 10:26] LABS: BASOPHILS % (AUTO) 0.8 %; EOSINOPHILS # (AUTO) 0.3 10^3/uL (0.0-0.7); EOSINOPHILS % (AUTO) 5.1 %; HCT - HEMATOCRIT 31.8 % (37.0-47.0); HGB - HEMOGLOBIN 10.1 g/dL (12.0-16.0); LYMPHOCYTES # (AUTO) 0.7 10^3/uL (1.5-3.5); LYMPHOCYTES % (AUTO) 13.5 %; MEAN CORPUSCULAR HEMOGLOBIN 30.4 pg (27.0-31.0); MEAN CORPUSCULAR HGB CONC 31.8 g/dL (32.0-36.0); MEAN CORPUSCULAR VOLUME 95.8 fL (81.0-99.0); MEAN PLATELET VOLUME 10.1 fL (7.9-10.8); MONOCYTES # (AUTO) 0.4 10^3/uL (0.0-1.0); NEUTROPHILS # (AUTO) 3.8 10^3/uL (1.5-6.6); NEUTROPHILS % (AUTO) 73.4 %; PLT - PLATELET COUNT 201 10^3/uL (130-450); RED BLOOD COUNT 3.32 10^6/uL (4.20-5.40); RED CELL DISTRIBUTION WIDTH 12.7 % (12.0-15.0); WHITE BLOOD COUNT 5.1 x10^3/uL (4.8-10.8)
[2021-01-11 11:40] LABS: CALCIUM 9.2 mg/dL (8.5-10.3); CREATININE 3.4 mg/dL (0.4-1.0); PHOSPHORUS 4.7 mg/dL (2.5-4.6); POTASSIUM 4.5 mmol/L (3.5-5.0)
== END 2021-01-11 09:57 | disposition home or self-care (01) ==
LOC: LAB 09:56
PROVIDERS: ATTEND Internal Medicine Nephrology
DX: N05.9 Unspecified nephritic syndrome with unspecified morphologic changes (principal); E83.30 Disorder of phosphorus metabolism, unspecified; N25.81 Secondary hyperparathyroidism of renal origin; D70.9 Neutropenia, unspecified; D63.1 Anemia in chronic kidney disease
CPT/HCPCS: 36415; 80048; 83970; 84100; 85025

== ENCOUNTER 2021-02-10 10:39 | Outpatient (CLI) | payer MEDICARE, OTHER ==
[2021-02-10 11:25] LABS: BASOPHILS % (AUTO) 0.4 %; EOSINOPHILS # (AUTO) 0.3 10^3/uL (0.0-0.7); EOSINOPHILS % (AUTO) 3.1 %; HGB - HEMOGLOBIN 8.5 g/dL (12.0-16.0); LYMPHOCYTES # (AUTO) 0.5 10^3/uL (1.5-3.5); LYMPHOCYTES % (AUTO) 5.7 %; MEAN CORPUSCULAR HGB CONC 30.4 g/dL (32.0-36.0); MEAN CORPUSCULAR VOLUME 95.6 fL (81.0-99.0); MEAN PLATELET VOLUME 9.6 fL (7.9-10.8); MONOCYTES # (AUTO) 0.5 10^3/uL (0.0-1.0); NEUTROPHILS # (AUTO) 7.5 10^3/uL (1.5-6.6); NEUTROPHILS % (AUTO) 84.2 %; PLT - PLATELET COUNT 268 10^3/uL (130-450); RED BLOOD COUNT 2.93 10^6/uL (4.20-5.40); RED CELL DISTRIBUTION WIDTH 12.4 % (12.0-15.0)
[2021-02-10 11:41] LABS: CALCIUM 9.2 mg/dL (8.5-10.3); CREATININE 3.7 mg/dL (0.4-1.0); POTASSIUM 5.1 mmol/L (3.5-5.0)
[2021-02-10 16:58] LABS: % IRON SATURATION 8 % (20-50); IRON 17 ug/dL (28-170); TOTAL IRON BINDING CAPACITY 214 ug/dL (250-450); TRANSFERRIN 153 mg/dL (192-382)
[2021-02-10 17:01] LABS: FERRITIN 164.5 ng/mL (11.0-306.8)
[2021-02-10 17:05] LABS: FOLATE 9.99 ng/mL (5.90 - >24.8)
== END 2021-02-10 10:40 | disposition home or self-care (01) ==
LOC: LAB 10:39
PROVIDERS: ATTEND Internal Medicine Nephrology
DX: N05.9 Unspecified nephritic syndrome with unspecified morphologic changes (principal); D70.9 Neutropenia, unspecified; D63.1 Anemia in chronic kidney disease; D50.0 Iron deficiency anemia secondary to blood loss (chronic)
CPT/HCPCS: 36415; 80048; 82607; 82728; 82746; 83540; 84466; 85025

== ENCOUNTER 2021-02-17 13:47 | Outpatient (CLI) | payer MEDICARE, OTHER | END 2021-02-17 13:48 | disposition home or self-care (01) | LOC: LAB 13:47 | PROVIDERS: ATTEND Internal Medicine Nephrology | DX: I50.32 Chronic diastolic (congestive) heart failure (principal); M60.9 Myositis, unspecified; E03.9 Hypothyroidism, unspecified | CPT/HCPCS: 36415; 82550; 83880; 84443 ==

== ENCOUNTER 2021-02-23 12:42 | Emergency (ER) | payer MEDICARE, OTHER ==
--- NOTE | 2021-02-23 13:03 | ED Physician Documentation ---
PD HPI DYSPNEA - Stated complaint Stated Complaint: SOA/WEAK - Chief complaint Chief Complaint: Cardiac - History obtained from History obtained from: Patient - Additional information Additional information: 85-year-old woman with history of stage IV chronic kidney disease, not on dialysis. More recent diagnosis of microscopic colitis, not currently under treatment for that except for psyllium fiber. She has only to chronic medications, levothyroxine and carvedilol. She been having increasing shortness of breath and anemia. 3 days ago was started on Lasix by her water plant maintenance mechanic, JOEY Jenkins. Despite that has more dyspnea on exertion despite losing 3 pounds. She also has a lot of weakness, muscular in the legs and arms. Review of Systems Ten Systems: 10 systems reviewed and negative Constitutional: reports: Fatigue. 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 : None HEENT: None Psych: Depression Musculoskeletal: Osteoarthritis Derm: Eczema - Past Surgical History Past Surgical History: No General: Appendectomy - Present Medications Home Medications: Ambulatory Orders Medication Instructions Recorded Confirmed Pantoprazole [Protonix] 40 mg PO DAILY 03/28/17 08/29/17 Levothyroxine [Synthroid] 75 mcg PO QDAC 06/15/17 06/15/17 NIFEdipine [Nifedipine ER] 30 mg PO DAILY 08/28/17 08/29/17 Cholecalciferol [Vitamin D3] 5,000 unit PO 08/29/17 - Allergies Allergies/Adverse Reactions: Allergies Allergy/AdvReac Type Severity Reaction Status Date / Time codeine Allergy Unknown Verified 02/23/21 12:51 lovastatin Allergy Hallucinati Verified 02/23/21 12:51 ons penicillin * [penicillin] Allergy Unknown Verified 02/23/21 12:51 prednisone Allergy Unknown Verified 02/23/21 12:51 Sulfa (Sulfonamide Allergy Unknown Verified 02/23/21 12:51 Antibiotics) - Social History Does the pt smoke?: No Smoking Status: Never smoker Does the pt drink ETOH?: Yes Does the pt have substance abuse?: No - Immunizations Immunizations are current?: Yes PD ED PE NORMAL - Vitals Vital signs reviewed: Yes - General General: Alert and oriented X 3, No acute distress - HEENT HEENT: PERRL, EOMI - Neck Neck: Supple, no meningeal sign, No bony TTP - Cardiac Cardiac: RRR, Other (Subtle decrescendo systolic murmur) - Respiratory Respiratory: No respiratory distress, Clear bilaterally - Abdomen Abdomen: Non tender - Extremities Extremities: No edema, No calf tenderness / cord - Neuro Neuro: Alert and oriented X 3, Normal speech Results - Vitals Vitals: Vital Signs - 24 hr 02/23/21 12:48 Temperature 36.4 C L Heart Rate 81 Respiratory 20 Rate Blood Pressure 118/62 O2 Saturation 97 Oxygen O2 Source Room air - EKG (time done) 1305 Rate: Rate (enter#) (81) Rhythm: NSR [place]: Normal Intervals: Normal UT QRS: Normal Ischemia: Normal ST segments - Labs Labs: Laboratory Tests 02/23/21 02/23/21 02/23/21 13:18 13:18 13:18 WBC 12.3 H RBC 3.01 L Hgb 8.9 L Hct 27.8 L MCV 92.4 MCH 29.6 MCHC 32.0 RDW 12.7 Plt Count 396 MPV 9.9 Neut # (Auto) 10.5 H Lymph # (Auto) 0.6 L [place] # (Auto) 0.8 Eos # (Auto) 0.3 Baso # (Auto) 0.0 Absolute Nucleated RBC 0.00 Nucleated RBC % 0.0 Sodium 132 L Potassium 5.2 H Chloride 100 L Carbon Dioxide 19 L Anion Gap 13.0 BUN 92 H* Creatinine 4.4 H Estimated GFR (MDRD) 10 L Glucose 109 H Calcium 9.9 Total Bilirubin 1.0 AST 11 ALT < 10 L Alkaline Phosphatase 75 Troponin I High Sens 15.5 H* B-Natriuretic Peptide Total Protein 7.1 Albumin 3.1 L Globulin 4.0 Albumin/Globulin Ratio 0.8 L Lipase 39 02/23/21 13:18 WBC RBC Hgb Hct MCV MCH MCHC RDW Plt Count MPV Neut # (Auto) Lymph # (Auto) [place] # (Auto) Eos # (Auto) Baso # (Auto) Absolute Nucleated RBC Nucleated RBC % Sodium Potassium Chloride Carbon Dioxide Anion Gap BUN Creatinine Estimated GFR (MDRD) Glucose Calcium Total Bilirubin AST ALT Alkaline Phosphatase Troponin I High Sens B-Natriuretic Peptide 68 Total Protein Albumin Globulin Albumin/Globulin Ratio Lipase PD MEDICAL DECISION MAKING - ED course ED course: 85-year-old woman presents with progressive shortness of breath and weakness. She has known chronic kidney disease. She is been diuresed the last few days which took a few pounds off but did not seem to help her symptomatically too much. Review of the labs shows she has progressive decrease in renal function, her GFR is rapidly declining. Although her troponin flexes elevated given the lack of chest pain or EKG changes, this is likely due to her poor renal function. I discussed the case by phone with her water plant maintenance mechanic, JOEY Jenkins who does not feel like she needs emergent dialysis but will call her and set her up for a vascular appointment to get the process started. Dr. Jenkins did ask for us to perform a Covid test today as it will help him get her into outpatient dialysis. Departure - Departure Disposition: 01 Home, Self Care Clinical Impression: Dyspnea Qualifiers: Dyspnea type: unspecified Qualified Code(s): R06.00 - Dyspnea, unspecified Renal failure Qualifiers: Renal failure chronicity: acute on chronic Acute renal failure type: unspecified Chronic kidney disease stage: stage 5, not on chronic dialysis Qualified Code(s): N17.9 - Acute kidney failure, unspecified Condition: Good Record reviewed to determine appropriate education?: Yes Instructions: ED Renal Failure Chronic, ED Diet Renal Comments: As discussed, I spoke with JOEY Jenkins today. He plans to reach out to you to start the process of getting setup for dialysis which will include a referral to a vascular surgeon for vascular access. Return if worse. You have a Covid test pending. The results should be done in 48 to 72 hours. We will call with a positive result, the fastest way to get a negative result for confirmation though is to go to the hospital website at [email or web address], click on the my pinion-pins tab and sign up for the patient portal.
--- NOTE | 2021-02-23 13:20 | XRAY Report ---
PROCEDURE: Chest 1 View X-Ray INDICATIONS: dyspnea TECHNIQUE: One view of the chest was acquired. COMPARISON: Chest xray 02/14/21 FINDINGS: Surgical changes and devices: None. Lungs and pleura: Increased right basilar opacity with blunting of the costophrenic angle. Mediastinum: Mediastinal contours appear normal. Heart size is normal. Bones and chest wall: No suspicious bony lesions. Overlying soft tissues appear unremarkable. IMPRESSION: Mild right effusion. Superimposed pneumonia/atelectasis/mass lesion cannot be excluded. Reviewed by: Carlota Eaton MD on 02/23/2021 1:19 PM PDT Approved by: Carlota Eaton MD on 02/23/2021 1:19 PM PDT Station ID: [id number]
[2021-02-23 13:25] LABS: BASOPHILS % (AUTO) 0.3 %; EOSINOPHILS # (AUTO) 0.3 10^3/uL (0.0-0.7); EOSINOPHILS % (AUTO) 2.5 %; HCT - HEMATOCRIT 27.8 % (37.0-47.0); HGB - HEMOGLOBIN 8.9 g/dL (12.0-16.0); LYMPHOCYTES # (AUTO) 0.6 10^3/uL (1.5-3.5); LYMPHOCYTES % (AUTO) 4.9 %; MEAN CORPUSCULAR HEMOGLOBIN 29.6 pg (27.0-31.0); MEAN CORPUSCULAR VOLUME 92.4 fL (81.0-99.0); MEAN PLATELET VOLUME 9.9 fL (7.9-10.8); MONOCYTES # (AUTO) 0.8 10^3/uL (0.0-1.0); MONOCYTES % (AUTO) 6.2 %; NEUTROPHILS # (AUTO) 10.5 10^3/uL (1.5-6.6); NEUTROPHILS % (AUTO) 85.4 %; PLT - PLATELET COUNT 396 10^3/uL (130-450); RED BLOOD COUNT 3.01 10^6/uL (4.20-5.40); RED CELL DISTRIBUTION WIDTH 12.7 % (12.0-15.0); WHITE BLOOD COUNT 12.3 x10^3/uL (4.8-10.8)
[2021-02-23 13:43] LABS: ALBUMIN 3.1 g/dL (3.2-5.5); ALBUMIN/GLOBULIN RATIO 0.8 (1.0-2.2); ALKALINE PHOSPHATASE 75 IU/L (42-121); ALT ALANINE AMINOTRANSFERASE < 10 IU/L (10-60); AST ASPARTATE AMINOTRANSFERASE 11 IU/L (10-42); CALCIUM 9.9 mg/dL (8.5-10.3); CARBON DIOXIDE - CO2 19 mmol/L (21-32); CHLORIDE 100 mmol/L (101-111); CREATININE 4.4 mg/dL (0.4-1.0); GFR - MDRD 10 (>89); GLUCOSE 109 mg/dL (70-100); LIPASE 39 U/L (22-51); POTASSIUM 5.2 mmol/L (3.5-5.0); SODIUM 132 mmol/L (135-145); TOTAL PROTEIN 7.1 g/dL (6.7-8.2)
[2021-02-23 13:44] LABS: BUN - BLOOD UREA NITROGEN 92 mg/dL (6-20)
[2021-02-23 14:37] VITALS: BP 120/78
== END 2021-02-23 14:45 | disposition home or self-care (01) ==
LOC: ED 12:42
DX: I12.0 Hypertensive chronic kidney disease with stage 5 chronic kidney disease or end stage renal disease (principal); N18.6 End stage renal disease; D63.1 Anemia in chronic kidney disease; Z20.822 Contact with and (suspected) exposure to COVID-19
CPT/HCPCS: 36415; 71045; 80053; 83690; 83880; 84484; 85025; 93005; 99284; U0004

== ENCOUNTER 2021-02-25 15:50 | Outpatient (CLI) | payer MEDICARE, OTHER ==
[2021-02-26 11:52] LABS: HEPATITIS B SURFACE ANTIGEN NON-REACTIVE (NON-REACTIVE); HEPATITIS C ANTIBODY NON-REACTIVE (NON-REACTIVE)
== END 2021-02-25 15:51 | disposition home or self-care (01) ==
LOC: LAB 15:50
PROVIDERS: ATTEND Internal Medicine Nephrology
DX: Z01.84 Encounter for antibody response examination (principal)
CPT/HCPCS: 36415; 86317; 86704; 86803; 87340

== ENCOUNTER 2021-03-03 11:53 | Outpatient (CLI) | payer MEDICARE, OTHER ==
[2021-03-03 13:22] LABS: FOLATE 6.29 ng/mL (5.90 - >24.8)
[2021-03-08 22:27] LABS: ANCA SCREEN POSITIVE (NEGATIVE)
== END 2021-03-03 11:54 | disposition home or self-care (01) ==
LOC: LAB 11:53
PROVIDERS: ATTEND Internal Medicine Nephrology
DX: M31.30 Wegener's granulomatosis without renal involvement (principal); I77.6 Arteritis, unspecified; D64.9 Anemia, unspecified; D70.9 Neutropenia, unspecified
CPT/HCPCS: 36415; 81599; 82607; 82746; 83615; 86021

== ENCOUNTER 2021-03-11 08:43 | Outpatient (CLI) | payer MEDICARE, OTHER | END 2021-03-11 08:44 | disposition home or self-care (01) | LOC: DI 08:43 | PROVIDERS: ATTEND Internal Medicine Nephrology | DX: I13.0 Hypertensive heart and chronic kidney disease with heart failure and stage 1 through stage 4 chronic kidney disease, or unspecified chronic kidney disease (principal); I50.9 Heart failure, unspecified; N18.4 Chronic kidney disease, stage 4 (severe); Z99.2 Dependence on renal dialysis | CPT/HCPCS: 93306 ==

== ENCOUNTER 2021-04-20 10:47 | Outpatient (CLI) | payer MEDICARE, OTHER ==
--- NOTE | 2021-04-20 12:36 | XRAY Report ---
PROCEDURE: Chest 2 View X-Ray INDICATIONS: LUNG CA TECHNIQUE: 2 view(s) of the chest. COMPARISON: 02/23/2021, CT abdomen pelvis 03/28/2017 FINDINGS: Surgical changes and devices: Right IJ dialysis catheter in place.. Lungs and pleura: Stable right lower lateral lung opacity, likely effusion, atelectasis and/or mass. Moderate L1 compression fracture.. Mediastinum: Mediastinal contours are normal. Heart size is normal. Moderate aortic atherosclerosi s. Bones and chest wall: No suspicious bony abnormalities. Soft tissues appear unremarkable. IMPRESSION: 1. Stable right lower lateral pleural opacity, likely chronic effusion or consolidation. 2. Interval placement of right IJ dialysis catheter. 3. Moderate L1 compression fracture, chronic. Reviewed by: Reta Goode MD on 04/20/2021 12:34 PM PDT Approved by: Reta Goode MD on 04/20/2021 12:34 PM PDT Station ID: [id number]
== END 2021-04-20 10:48 | disposition home or self-care (01) ==
LOC: DI 10:47
PROVIDERS: ATTEND Internal Medicine Nephrology
DX: E83.52 Hypercalcemia (principal); C34.90 Malignant neoplasm of unspecified part of unspecified bronchus or lung; R91.8 Other nonspecific abnormal finding of lung field; Z95.828 Presence of other vascular implants and grafts; M48.56XD Collapsed vertebra, not elsewhere classified, lumbar region, subsequent encounter for fracture with routine healing

== ENCOUNTER 2021-05-21 12:31 | Emergency (ER) | payer MEDICARE, OTHER ==
--- NOTE | 2021-05-21 12:46 | ED Physician Documentation ---
History of Present Illness - Stated complaint Stated Complaint: HIGH BLOOD COUNT - Chief complaint Chief Complaint: General - History obtained from History obtained from: Patient - Additonal information Additional information: 85-year-old woman on dialysis, she is not anuric. She had routine labs done at dialysis today and was called after her dialysis session and referred here for a high white blood cell count. She does not know the exact number but was 20 something thousand. She has some mild right lower quadrant pain radiating to the back noting that she had an appendectomy in her youth. That is been going on for about a week. She had a chronic cough that has not worsened. Otherwise no symptoms of infection. She does have chronic loose stools from microscopic colitis. No fevers or chills. Review of Systems Ten Systems: 10 systems reviewed and negative Constitutional: denies: Fever, Chills Respiratory: reports: Cough (chronic). denies: Dyspnea GI: reports: Abdominal Pain, Diarrhea (chronic). 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 : None HEENT: None Psych: Depression Musculoskeletal: Osteoarthritis Derm: Eczema - Past Surgical History Past Surgical History: No General: Appendectomy - Present Medications Home Medications: Ambulatory Orders Medication Instructions Recorded Confirmed Pantoprazole [Protonix] 40 mg PO DAILY 03/28/17 08/29/17 Levothyroxine [Synthroid] 75 mcg PO QDAC 06/15/17 06/15/17 NIFEdipine [Nifedipine ER] 30 mg PO DAILY 08/28/17 08/29/17 Cholecalciferol [Vitamin D3] 5,000 unit PO 08/29/17 - Allergies Allergies/Adverse Reactions: Allergies Allergy/AdvReac Type Severity Reaction Status Date / Time codeine Allergy Unknown Verified 05/21/21 12:33 lovastatin Allergy Hallucinati Verified 05/21/21 12:33 ons penicillin * [penicillin] Allergy Unknown Verified 05/21/21 12:33 prednisone Allergy Unknown Verified 05/21/21 12:33 Sulfa (Sulfonamide Allergy Unknown Verified 05/21/21 12:33 Antibiotics) - Living Situation Living Situation: reports: With spouse/s.o. - Social History Does the pt smoke?: No Smoking Status: Never smoker Does the pt drink ETOH?: Yes Does the pt have substance abuse?: No - Immunizations Immunizations are current?: Yes PD ED PE NORMAL - Vitals Vital signs reviewed: Yes - General General: Alert and oriented X 3, No acute distress - HEENT HEENT: PERRL, EOMI - Neck Neck: Supple, no meningeal sign, No bony TTP - Cardiac Cardiac: RRR, No murmur - Respiratory Respiratory: No respiratory distress, Clear bilaterally - Abdomen Abdomen: Normal bowel sounds, Soft, Other (Minimal right pelvic tenderness, no surgical signs) - Derm Derm: Other (Tunneled dialysis catheter in the right upper chest without tenderness or signs of infection. She has a fresh dialysis fistula which is not used yet in the left arm without signs of infection.) - Extremities Extremities: No edema, No calf tenderness / cord - Neuro Neuro: Alert and oriented X 3, Normal speech Results - Vitals Vitals: Vital Signs - 24 hr 05/21/21 05/21/21 12:33 12:38 Temperature 37.1 C 37.1 C Heart Rate 109 H 109 H Respiratory 18 18 Rate Blood Pressure 158/84 H 158/84 H O2 Saturation 100 100 Oxygen O2 Source Room air - Labs Labs: Laboratory Tests 05/21/21 05/21/21 05/21/21 12:49 13:03 13:03 WBC 10.4 RBC 3.27 L Hgb 9.5 L Hct 32.7 L MCV 100.0 H MCH 29.1 MCHC 29.1 L RDW 15.8 H Plt Count 418 MPV 8.9 Neut # (Auto) 8.6 H Lymph # (Auto) 0.7 L [place] # (Auto) 0.6 Eos # (Auto) 0.3 Baso # (Auto) 0.1 Absolute Nucleated RBC 0.00 Nucleated RBC % 0.0 Sodium 142 Potassium 3.6 Chloride 101 Carbon Dioxide 31 Anion Gap 10.0 BUN 12 Creatinine 2.1 H Estimated GFR (MDRD) 22 L Glucose 114 H Calcium 9.3 Total Bilirubin 0.4 AST 14 ALT < 10 L Alkaline Phosphatase 89 Total Protein 6.7 Albumin 2.6 L Globulin 4.1 Albumin/Globulin Ratio 0.6 L Lipase 43 Urine Color LIGHT YELLOW Urine Clarity CLEAR Urine pH >=9.0 H Ur Specific [place] 1.010 Urine Protein 100 H Urine Glucose (UA) NEGATIVE Urine Ketones NEGATIVE Urine Occult Blood TRACE-INTA Urine Nitrite NEGATIVE Urine Bilirubin NEGATIVE Urine Urobilinogen 0.2 (NORMAL) Ur Leukocyte Esterase SMALL H Urine RBC 0-5 Urine WBC 6-10 H Ur Squamous Epith Cells MANY Squamous H Urine Bacteria Few Ur Microscopic Review INDICATED Urine Culture Comments NOT INDICATED PD MEDICAL DECISION MAKING - ED course ED course: This is a eddie 85-year-old woman who presents at the behest of her on-call bsw for a leukocytosis which was not reproducible on her labs here. She is afebrile and well-appearing. She has some pelvic pain which she thinks is likely her colitis, CT was done without acute findings and the incidental findings on there were discussed with her. Close watchful waiting and return precautions were discussed. Departure - Departure Disposition: 01 Home, Self Care Clinical Impression: Pelvic pain, ESRD (end stage renal disease) on dialysis, Leukocytosis Condition: Good Record reviewed to determine appropriate education?: Yes Instructions: ED Abdominal Pain Unkn Cause Comments: As discussed, if you develop increasing pain, fevers or chills please return for reevaluation or any other new symptoms that are bothering you. Otherwise continue dialysis as routine.
[2021-05-21 12:58] LABS: BILIRUBIN,URINE NEGATIVE (NEGATIVE); CLARITY,URINE CLEAR (CLEAR); GLUCOSE, URINE (UA) NEGATIVE (NEGATIVE); KETONES,URINE (UA) NEGATIVE (NEGATIVE); LEUKOCYTE ESTERASE, URINE SMALL (NEGATIVE); NITRITE,URINE NEGATIVE (NEGATIVE); OCCULT BLOOD,URINE TRACE-INTA (NEGATIVE); PH,URINE >=9.0 PH (5.0-7.5); PROTEIN,URINE 100 mg/dL (NEGATIVE); UROBILINOGEN,URINE 0.2 (NORMAL) E.U./dL (NORMAL)
[2021-05-21 13:14] LABS: RBC,URINE 0-5 /HPF (0-5)
[2021-05-21 13:15] LABS: BACTERIA,URINE Few /HPF (None Seen); SQUAMOUS EPITHELIAL CELL,UR MANY Squamous (<= Few)
[2021-05-21 13:16] LABS: BASOPHILS # (AUTO) 0.1 10^3/uL (0.0-0.1); BASOPHILS % (AUTO) 0.6 %; EOSINOPHILS # (AUTO) 0.3 10^3/uL (0.0-0.7); EOSINOPHILS % (AUTO) 2.6 %; HCT - HEMATOCRIT 32.7 % (37.0-47.0); HGB - HEMOGLOBIN 9.5 g/dL (12.0-16.0); LYMPHOCYTES # (AUTO) 0.7 10^3/uL (1.5-3.5); LYMPHOCYTES % (AUTO) 6.9 %; MEAN CORPUSCULAR HEMOGLOBIN 29.1 pg (27.0-31.0); MEAN CORPUSCULAR HGB CONC 29.1 g/dL (32.0-36.0); MEAN PLATELET VOLUME 8.9 fL (7.9-10.8); MONOCYTES # (AUTO) 0.6 10^3/uL (0.0-1.0); MONOCYTES % (AUTO) 6.1 %; NEUTROPHILS # (AUTO) 8.6 10^3/uL (1.5-6.6); NEUTROPHILS % (AUTO) 82.7 %; PLT - PLATELET COUNT 418 10^3/uL (130-450); RED BLOOD COUNT 3.27 10^6/uL (4.20-5.40); RED CELL DISTRIBUTION WIDTH 15.8 % (12.0-15.0); WHITE BLOOD COUNT 10.4 x10^3/uL (4.8-10.8)
[2021-05-21 13:28] LABS: ALBUMIN 2.6 g/dL (3.2-5.5); ALBUMIN/GLOBULIN RATIO 0.6 (1.0-2.2); ALKALINE PHOSPHATASE 89 IU/L (42-121); ALT ALANINE AMINOTRANSFERASE < 10 IU/L (10-60); AST ASPARTATE AMINOTRANSFERASE 14 IU/L (10-42); BILIRUBIN,TOTAL 0.4 mg/dL (0.2-1.0); BUN - BLOOD UREA NITROGEN 12 mg/dL (6-20); CALCIUM 9.3 mg/dL (8.5-10.3); CARBON DIOXIDE - CO2 31 mmol/L (21-32); CHLORIDE 101 mmol/L (101-111); CREATININE 2.1 mg/dL (0.4-1.0); GFR - MDRD 22 (>89); GLUCOSE 114 mg/dL (70-100); LIPASE 43 U/L (22-51); POTASSIUM 3.6 mmol/L (3.5-5.0); SODIUM 142 mmol/L (135-145); TOTAL PROTEIN 6.7 g/dL (6.7-8.2)
--- NOTE | 2021-05-21 14:09 | CT Report ---
PROCEDURE: Abdomen/Pelvis WO INDICATIONS: pelvic pain TECHNIQUE: Noncontrast 5 mm thick sections acquired from the diaphragms to the symphysis. 5 mm coronal and sagi ttal reformats were then performed. For radiation dose reduction, the following was used: automated exposure control, adjustment of mA and/or kV according to patient size. COMPARISON: 03/28/2017. Correlation is made with chest radiograph, 04/20/2021 FINDINGS: Image quality: Excellent. ABDOMEN: Lung bases: There is a trace left-sided pleural effusion. Mild dependent atelectasis can be seen on b oth sides. Heart size is normal. There is a moderate pericardial effusion. Mild to moderate coronary artery calcifications can be seen. There is partial visualization of a dialysis catheter. A small hi atal hernia is incidentally noted. Solid organs: Liver and spleen are normal in size. Gallbladder is collapsed, with layering gallston es seen within it, as on series 3 image 24. Pancreas is normal in contours. No adrenal nodules. Ki dneys are small in size, without hydronephrosis or nephrolithiasis. Peritoneum and bowel: Unenhanced bowel loops demonstrate normal wall thickness and caliber. No free fluid or air. Diverticulosis can be seen, without dago findings of active diverticulitis. Nodes and vessels: No retroperitoneal or mesenteric adenopathy by size criteria. Aorta and inferior vena cava are normal in caliber. Atherosclerotic calcification is seen. Miscellaneous: No ventral hernias. PELVIS: Genitourinary: Bladder wall thickness is normal. The uterus demonstrates normal size. No adnexal ma sses are seen on either side. Miscellaneous: No inguinal adenopathy. Bilateral fat-containing inguinal hernias can be seen. Bones: No suspicious bony lesions. There is an L1 compression deformity, which is stable compared to 2017. Degenerative changes are seen throughout, which are worst at the L2-L3 level. There is moderat e dextroconvex scoliosis. IMPRESSION: A cause of pelvic pain is not seen. Diverticulosis can be seen, without dago findings of active diverticulitis. There is a moderate pericardial effusion, which is not enlarged compared to 2017. Trace left-sided pleural effusion. Collapsed gallbladder, with layering gallstones seen within it. Incidental note is made of: Dialysis catheter Small hiatal hernia Mild to moderate coronary artery calcifications Small kidney size Stable L1 compression deformity. Focal L2-L3 degenerative change Moderate dextroconvex scoliosis Bilateral fat-containing inguinal hernias Reviewed by: Bethel De Guzman MD on 05/21/2021 1:07 PM TEJINDER Approved by: Bethel De Guzman MD on 05/21/2021 1:07 PM TEJINDER Station ID: [id number]
[2021-05-21 14:27] VITALS: BP 142/67
== END 2021-05-21 14:30 | disposition home or self-care (01) ==
LOC: ED 12:31
DX: D72.829 Elevated white blood cell count, unspecified (principal); N18.6 End stage renal disease; R10.2 Pelvic and perineal pain; Z99.2 Dependence on renal dialysis; K57.90 Diverticulosis of intestine, part unspecified, without perforation or abscess without bleeding; I31.3 Pericardial effusion (noninflammatory); J90 Pleural effusion, not elsewhere classified; K80.80 Other cholelithiasis without obstruction; K44.9 Diaphragmatic hernia without obstruction or gangrene; K40.20 Bilateral inguinal hernia, without obstruction or gangrene, not specified as recurrent; I25.10 Atherosclerotic heart disease of native coronary artery without angina pectoris
CPT/HCPCS: 36415; 80053; 81001; 81003; 83690; 85025; 87086; 99282; 99284

== ENCOUNTER 2021-07-16 09:53 | Outpatient (CLI) | payer MEDICARE, OTHER ==
[2021-07-16 13:40] LABS: BASOPHILS # (AUTO) 0.1 10^3/uL (0.0-0.1); BASOPHILS % (AUTO) 0.6 %; EOSINOPHILS # (AUTO) 0.3 10^3/uL (0.0-0.7); EOSINOPHILS % (AUTO) 2.2 %; HCT - HEMATOCRIT 38.3 % (37.0-47.0); HGB - HEMOGLOBIN 11.1 g/dL (12.0-16.0); LYMPHOCYTES # (AUTO) 0.8 10^3/uL (1.5-3.5); LYMPHOCYTES % (AUTO) 5.5 %; MEAN CORPUSCULAR HEMOGLOBIN 29.1 pg (27.0-31.0); MEAN CORPUSCULAR VOLUME 100.5 fL (81.0-99.0); MEAN PLATELET VOLUME 9.7 fL (7.9-10.8); MONOCYTES # (AUTO) 0.9 10^3/uL (0.0-1.0); MONOCYTES % (AUTO) 6.4 %; NEUTROPHILS # (AUTO) 11.6 10^3/uL (1.5-6.6); NEUTROPHILS % (AUTO) 84.4 %; PLT - PLATELET COUNT 380 10^3/uL (130-450); RED BLOOD COUNT 3.81 10^6/uL (4.20-5.40); RED CELL DISTRIBUTION WIDTH 17.2 % (12.0-15.0); WHITE BLOOD COUNT 13.7 x10^3/uL (4.8-10.8)
[2021-07-16 14:20] LABS: ALBUMIN 2.6 g/dL (3.2-5.5); ALBUMIN/GLOBULIN RATIO 0.7 (1.0-2.2); ALKALINE PHOSPHATASE 92 IU/L (42-121); ALT ALANINE AMINOTRANSFERASE < 10 IU/L (10-60); AST ASPARTATE AMINOTRANSFERASE 12 IU/L (10-42); BILIRUBIN,TOTAL 0.5 mg/dL (0.2-1.0); BUN - BLOOD UREA NITROGEN 22 mg/dL (6-20); CALCIUM 11.2 mg/dL (8.5-10.3); CARBON DIOXIDE - CO2 29 mmol/L (21-32); CHLORIDE 97 mmol/L (101-111); CREATININE 3.6 mg/dL (0.4-1.0); GFR - MDRD 12 (>89); GLUCOSE 88 mg/dL (70-100); POTASSIUM 4.2 mmol/L (3.5-5.0); SODIUM 136 mmol/L (135-145); TOTAL PROTEIN 6.5 g/dL (6.7-8.2)
[2021-07-16 14:29] LABS: CORTISOL 18.9 ug/dL
[2021-07-16 14:35] LABS: FREE T4 (FREE THYROXINE) 0.61 ng/dL (0.58-1.64)
[2021-07-16 17:32] LABS: THYROID STIMULATING HORMONE 73.88 uIU/mL (0.34-5.60)
== END 2021-07-16 09:54 | disposition home or self-care (01) ==
LOC: LAB.N 09:53
PROVIDERS: ATTEND Internal Medicine Nephrology
DX: I50.32 Chronic diastolic (congestive) heart failure (principal); D70.9 Neutropenia, unspecified; D63.1 Anemia in chronic kidney disease; N05.9 Unspecified nephritic syndrome with unspecified morphologic changes; E87.1 Hypo-osmolality and hyponatremia; E03.9 Hypothyroidism, unspecified
CPT/HCPCS: 36415; 80053; 82533; 83880; 84439; 84443; 85025

== ENCOUNTER 2021-07-28 09:15 | Outpatient (CLI) | payer MEDICARE, OTHER ==
[2021-07-28] MEDS ORDERED: IOVERSOL 320 50 ML VIAL ONE (09:41)
[2021-07-28] MEDS ORDERED: IOVERSOL 320 50 ML VIAL PO ONE (10:43)
--- NOTE | 2021-07-28 11:21 | CT Report ---
PROCEDURE: CHEST WO INDICATIONS: OCCULT CA, HYPERCALCEMIA TECHNIQUE: Noncontrast 1mm axial images were acquired from the pulmonary apices to the posterior costophrenic an gles. Axial 5 mm soft tissue kernel reconstructions were performed as well as 8 mm axial MIP and cor onal and sagittal 5 mm reformations. For radiation dose reduction, the following was used: automate d exposure control, adjustment of mA and/or kV according to patient size. COMPARISON: None FINDINGS: Image quality: Excellent. Lungs and pleura: There is moderate right and mild left bibasilar atelectasis versus pneumonia. No pn eumothorax. Small right greater than left pleural effusions.. Central and peripheral airways are pat ent and normal in caliber. Mediastinum: Heart size is normal. Small pericardial effusion. Moderate calcification of the coronar y vasculature. No mediastinal adenopathy by size criteria. Thoracic aorta and central pulmonary taniya cezar are normal in size. Esophagus is normal in caliber. No hiatal hernia. Bones and chest wall: Moderate chronic L1 compression fracture. Right internal jugular vein tunneled hemodialysis catheter is present, tip of which is at the cavoatrial junction. No suspicious bony lesi ons. No vertebral body compression fractures. No axillary or supraclavicular adenopathy by size cri teria. The thyroid is normal in size and there are no incidental findings. Abdomen: Visualized portions of the upper abdomen demonstrate mural calcification of the gallbladder , as well as bilateral renal atrophy. IMPRESSION: 1. Bibasilar atelectasis versus pneumonia with small bilateral pleural effusions. 2. Coronary artery disease. 3. Small pericardial effusion. 4. 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 Surgical consultation recommende d. CLINICAL RECOMMENDATION STATEMENTS: In patients <35 years with an ITN detected on CT, MRI, or extrathyroidal ultrasound, the Committee re commends further evaluation with dedicated thyroid ultrasound if the nodule is "e1 cm and has no susp icious imaging features, and if the patient has normal life expectancy. In patients "e35 years with an ITN detected on CT, MRI, or extrathyroidal ultrasound, the Committee r ecommends further evaluation with dedicated thyroid ultrasound if the nodule is "e1.5 cm and has no s uspicious imaging features, and if the patient has normal life expectancy. (ACR, 2014) Reviewed by: Adeola Sutton MD on 07/28/2021 11:19 AM PST Approved by: Adeola Sutton MD on 07/28/2021 11:19 AM PST Station ID: [id number]
--- NOTE | 2021-07-28 11:23 | CT Report ---
PROCEDURE: Abdomen/Pelvis WO INDICATIONS: OCCULT CA, HYPERCALCEMIA TECHNIQUE: Noncontrast 5 mm thick sections acquired from the diaphragms to the symphysis. 5 mm coronal and sagi ttal reformats were then performed. For radiation dose reduction, the following was used: automated exposure control, adjustment of mA and/or kV according to patient size. COMPARISON: CT dated 05/21/2021 FINDINGS: Image quality: Excellent. ABDOMEN: Lung bases: Moderate right and mild left bibasilar atelectasis versus pneumonia. Small right greater than left bibasilar pleural effusions. Moderate calcification of the coronary vasculature. Small konstantin cardial effusion. Solid organs: Liver and spleen are normal in size. Gallbladder demonstrates diffu se mural calcification, increased in prominence. Pancreas is normal in contours. No adrenal nodules . Kidneys are moderately atrophic bilaterally. No hydronephrosis nor calcifications. Peritoneum and bowel: Unenhanced bowel loops demonstrate normal wall thickness and caliber. Diverti culosis of the descending and sigmoid colon. No evidence of acute diverticulitis. No free fluid or ai r. Nodes and vessels: No retroperitoneal or mesenteric adenopathy by size criteria. Aorta and inferior vena cava are normal in caliber. Miscellaneous: No ventral hernias. PELVIS: Genitourinary: Bladder wall thickness is normal. Miscellaneous: No inguinal hernias or adenopathy. Bones: No suspicious bony lesions. Moderate chronic L1 compression fracture. No acute vertebral bod y compression fractures. IMPRESSION: 1. Bibasilar atelectasis versus pneumonia with small right greater than left pleural effusions. 2. Small pericardial effusion. 3. Coronary artery disease. 4. 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 Surgical consultation recommende d. 5. Bilateral renal atrophy. 6. Moderate chronic L1 compression fracture. Reviewed by: Adeola Sutton MD on 07/28/2021 11:22 AM PST Approved by: Adeola Sutton MD on 07/28/2021 11:22 AM PST Station ID: [id number]
== END 2021-07-28 09:16 | disposition home or self-care (01) ==
LOC: DI 09:15
PROVIDERS: ATTEND Internal Medicine Nephrology
DX: E83.52 Hypercalcemia (principal); C80.1 Malignant (primary) neoplasm, unspecified; R91.8 Other nonspecific abnormal finding of lung field; J90 Pleural effusion, not elsewhere classified; I25.10 Atherosclerotic heart disease of native coronary artery without angina pectoris; I31.3 Pericardial effusion (noninflammatory); K82.8 Other specified diseases of gallbladder

== ENCOUNTER 2021-08-13 05:02 | Emergency (ER) | payer MEDICARE, OTHER ==
[2021-08-13 05:48] LABS: BASOPHILS # (AUTO) 0.1 10^3/uL (0.0-0.1); BASOPHILS % (AUTO) 0.6 %; EOSINOPHILS # (AUTO) 0.2 10^3/uL (0.0-0.7); EOSINOPHILS % (AUTO) 1.3 %; HCT - HEMATOCRIT 34.9 % (37.0-47.0); HGB - HEMOGLOBIN 10.4 g/dL (12.0-16.0); LYMPHOCYTES # (AUTO) 0.6 10^3/uL (1.5-3.5); LYMPHOCYTES % (AUTO) 4.3 %; MEAN CORPUSCULAR HEMOGLOBIN 29.1 pg (27.0-31.0); MEAN CORPUSCULAR HGB CONC 29.8 g/dL (32.0-36.0); MEAN CORPUSCULAR VOLUME 97.5 fL (81.0-99.0); MONOCYTES # (AUTO) 0.7 10^3/uL (0.0-1.0); MONOCYTES % (AUTO) 4.6 %; NEUTROPHILS # (AUTO) 12.5 10^3/uL (1.5-6.6); NEUTROPHILS % (AUTO) 88.5 %; PLT - PLATELET COUNT 381 10^3/uL (130-450); RED BLOOD COUNT 3.58 10^6/uL (4.20-5.40); WHITE BLOOD COUNT 14.1 x10^3/uL (4.8-10.8)
[2021-08-13 06:02] LABS: ALBUMIN 2.1 g/dL (3.2-5.5); ALBUMIN/GLOBULIN RATIO 0.6 (1.0-2.2); BILIRUBIN,TOTAL 0.6 mg/dL (0.2-1.0); CALCIUM 7.7 mg/dL (8.5-10.3); CREATININE 4.8 mg/dL (0.4-1.0); POTASSIUM 4.8 mmol/L (3.5-5.0); TOTAL PROTEIN 5.9 g/dL (6.7-8.2)
--- NOTE | 2021-08-13 07:00 | ED Physician Documentation ---
PD HPI CHEST PAIN - Stated complaint Stated Complaint: CHEST PAIN - Chief complaint Chief Complaint: Cardiac - History obtained from History obtained from: Patient, Family - History of Present Illness Timing - onset: Enter time (1899), Yesterday Timing - onset during: Rest Timing - duration: Hours Timing - details: Abrupt onset, Still present Quality: Pressure, Tightness, Sharp Location: Substernal, Left chest Radiation: Back Improved by: Rest Worsened by: Inspiration Associated symptoms: Cough (chronic). No: Shortness of air, Diaphoresis, Nausea, Vomiting, Feeling faint / dizzy, General Weakness, Palpitations Similar symptoms before: Has not had sx before Recently seen: Surgery - Additional information Additional information: 85-year-old female on renal dialysis has recently had her catheter replaced at [facility]. She was dialyzed earlier in the day and at 7 PM she was at home when she developed pain in her groin and then she developed some pain in her chest that radiated into her back. She arrives to the emergency department early this morning with persistence of her symptoms brought in here by her daughter. She continues to have chest pain it is worse with a deep breath. The patient is attended to by Dr. JOEY Glover who indicates that she has recently had a significant work-up done at [facility] in [place]. Review of Systems Constitutional: denies: Fever, Chills, Myalgias Eyes: denies: Decreased vision Ears: denies: Ear pain Nose: denies: Congestion Throat: denies: Sore throat Cardiac: reports: Chest pain / pressure. denies: Palpitations, Pedal edema, Calf pain Respiratory: reports: Cough. denies: Dyspnea GI: reports: Abdominal Pain. denies: Nausea, Vomiting : denies: Dysuria, Discharge Musculoskeletal: reports: Back pain. denies: Neck pain, Extremity pain Neurologic: reports: Generalized weakness. 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 : Dialysis, Renal insuffiency HEENT: None Psych: Depression Musculoskeletal: Osteoarthritis Derm: Eczema - Past Surgical History Past Surgical History: No General: Appendectomy - Present Medications Home Medications: Ambulatory Orders Medication Instructions Recorded Confirmed HYDROcod/ACETAM 5/325 [[place] 5/325] 1 - 2 tablet PO Q6H PRN #14 tablet 08/13/21 Levothyroxine Sodium 100 mcg PO DAILY 08/13/21 08/13/21 [Levothyroxine] Metoprolol Succinate [Toprol Xl] 25 mg PO DAILY #20 tablet 08/13/21 - Allergies Allergies/Adverse Reactions: Allergies Allergy/AdvReac Type Severity Reaction Status Date / Time codeine Allergy Unknown Verified 08/13/21 05:28 lovastatin Allergy Hallucinati Verified 08/13/21 05:28 ons penicillin * [penicillin] Allergy Unknown Verified 08/13/21 05:28 prednisone Allergy Unknown Verified 08/13/21 05:28 Sulfa (Sulfonamide Allergy Unknown Verified 08/13/21 05:28 Antibiotics) - Social History Does the pt smoke?: No Smoking Status: Never smoker Does the pt drink ETOH?: Yes Does the pt have substance abuse?: No - Immunizations Immunizations are current?: Yes - POLST Patient has POLST: No PD ED PE NORMAL - Vitals Vital signs reviewed: Yes (Hypertensive) - General General: Alert and oriented X 3, Well developed/nourished, Other (Thin 85-year-old female has some speech latency and delay in execution of motor commands but is able to answer questions appropriately.) - HEENT HEENT: Atraumatic, PERRL, EOMI - Neck Neck: Supple, no meningeal sign, No bony TTP - Cardiac Cardiac: RRR, Other (2 out of 6 decrescendo murmur at the left sternal border) - Respiratory Respiratory: No respiratory distress, Clear bilaterally - Abdomen Abdomen: Normal bowel sounds, Soft, Non tender, Non distended, No organomegaly, Other (I was able to examine the patient when she is initially arrived and she did have a palpable mass in the right lower quadrant this receded from my fin gers during examination and the patient's groin pain resolved.) Results - Vitals Vitals: Vital Signs - 24 hr 08/13/21 08/13/21 08/13/21 05:05 05:10 05:48 Temperature 36.2 C L Heart Rate 92 91 Respiratory 20 22 Rate Blood Pressure 141/77 H 144/85 H Blood Pressure 144/85 H [Right] O2 Saturation 98 95 08/13/21 08/13/21 08/13/21 06:04 06:45 07:07 Temperature Heart Rate 88 102 H 93 Respiratory 18 20 23 Rate Blood Pressure 132/74 H 140/75 H 145/84 H Blood Pressure [Right] O2 Saturation 98 98 99 08/13/21 08:45 Temperature 36.0 C L Heart Rate 86 Respiratory 24 Rate Blood Pressure 135/80 H Blood Pressure [Right] O2 Saturation 95 Oxygen O2 Source Room air - Labs Labs: Laboratory Tests 08/13/21 08/13/21 08/13/21 05:40 05:40 05:40 WBC 14.1 H RBC 3.58 L Hgb 10.4 L Hct 34.9 L MCV 97.5 MCH 29.1 MCHC 29.8 L RDW 17.0 H Plt Count 381 MPV 9.0 Neut # (Auto) 12.5 H Lymph # (Auto) 0.6 L Sabine # (Auto) 0.7 Eos # (Auto) 0.2 Baso # (Auto) 0.1 Absolute Nucleated RBC 0.00 Nucleated RBC % 0.0 Sodium 131 L Potassium 4.8 Chloride 93 L Carbon Dioxide 27 Anion Gap 11.0 BUN 39 H Creatinine 4.8 H Estimated GFR (MDRD) 9 L Glucose 88 Calcium 7.7 L Total Bilirubin 0.6 AST 26 ALT 12 Alkaline Phosphatase 181 H Troponin I High Sens 203.7 H* Total Protein 5.9 L Albumin 2.1 L Globulin 3.8 Albumin/Globulin Ratio 0.6 L Lipase 32 08/13/21 07:29 WBC RBC Hgb Hct MCV MCH MCHC RDW Plt Count MPV Neut # (Auto) Lymph # (Auto) Sabine # (Auto) Eos # (Auto) Baso # (Auto) Absolute Nucleated RBC Nucleated RBC % Sodium Potassium Chloride Carbon Dioxide Anion Gap BUN Creatinine Estimated GFR (MDRD) Glucose Calcium Total Bilirubin AST ALT Alkaline Phosphatase Troponin I High Sens 158.3 H* Total Protein Albumin Globulin Albumin/Globulin Ratio Lipase - Rads (name of study) chest Radiology: Prelim report reviewed (Impression: Pleural effusions, right greater than left, appear unchanged. Mild interstitial prominence, possibly fluid overload/edema.), EMP read indepedently, See rad report Procedures - IVC sono (time) 0520 Bedside IVC sono: IVC measures (cm) (1.66), IVC collapsed c insp (cm) (1.24), Euvolemia PD MEDICAL DECISION MAKING - ED course Complexity details: reviewed old records, reviewed results, re-evaluated patient, considered differential, d/w patient, d/w family, d/w automobile sales consultant (JOEY Jenkins recomends repeat trop, addition of metoprolol and family consultation if trop raises dramatically ) ED course: 85-year-old female presents to the emergency department with groin pain since 7 PM yesterday and pain in her chest that is worse with inspiration and radiates to her back. I felt that I was able to reduce a hernia in the right lower quadrant and the patient's pain in the groin is now resolved. She continues have pain in her chest and she has an elevated troponin and increased voltage on her electrocardiogram. She has a decrescendo murmur this is been previously investigated with echocardiogram.I had the good fortune of being able to talk to her global project manager Dr. JOEY Glover who indicates to me that they have taken her off of her metoprolol and he recommends restarting metoprolol at 25 mg daily. He recommends second troponin and if there is significant change consultation with the family about treatments as she is not a candidate for invasive measures. She has had a complete work up at [facility] in [place] and has known coronary calcifications. She also has had some trouble with her calcium with elevated calcium. This has been treated and her mentation has improved. Today her sensitive trop was elevated at 203 and a repeat was lower at 158. Likely indicating some demand ishemia that is now resolved. Her pain in her back persists and we are providing pain medication for 8/10 back pain that is worse with movement and palpation. The pain is worse with palpation of the gallbladder as well. 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 The patient welcomes some pain relief with morphine and zofran and we will provide some hydrocodone for use at home. Departure - Departure Disposition: 01 Home, Self Care Clinical Impression: Back pain of thoracolumbar region, Atypical chest pain Condition: Stable Instructions: ED Chest Pain Atypical Unkn Cause, ED Neck Back Pain General Follow-Up: Marisol Kendrick MD [Primary Care Provider] - Prescriptions: HYDROcod/ACETAM 5/325 [[place] 5/325] 1 - 2 tablet PO Q6H PRN #14 tablet PRN Reason: Pain Metoprolol Succinate [Toprol Xl] 25 mg PO DAILY #20 tablet Comments: Leida, today on examination it did feel like we had reduced a hernia in your groin area and I am happy to hear you are no longer having pain there. We did also find on examination that you appear to be tender over your gallbladder and this seemed to make the pain you are having worse and your pain seems to be worse with movement as well. These are not signs of heart attack however, there is evidence that there was heart strain with an elevation in your troponin which has improved. We have provided some pain medication for comfort and Dr. Jenkins has recommended we place you back on the metoprolol. Prescriptions have been E- scribed to [facility] in [place].
[2021-08-13] MEDS ORDERED: METOPROLOL SUCCINATE 25 MG TABLET PO STA (07:16)
--- NOTE | 2021-08-13 07:31 | XRAY Report ---
PROCEDURE: Chest 1 View X-Ray INDICATIONS: Chest pain COMMENTS: MID STERNAL CHEST PAIN AND RIGHT GROIN PAIN SINCE 1900. RECEN T DIALYSIS. PRIORS: CT CHEST 07/28/21, XR CHEST 04/20/21, XR CHEST 02/23/21, XR CHEST 02/15/16 TECHNIQUE: One view of the chest was acquired. COMPARISON: 04/20/2021 FINDINGS: Surgical changes and devices: Right chest wall dialysis catheter appears well-positioned. Lungs and pleura: Right basilar platelike atelectasis. Small right pleural effusion. Mediastinum: Mediastinal contours appear normal. Heart size is normal. Bones and chest wall: No suspicious bony lesions. Overlying soft tissues appear unremarkable. IMPRESSION: Right basilar atelectasis and platelike atelectasis in the right lung base. Reviewed by: Roger Shafer on 08/13/2021 6:30 AM [facility] Approved by: Roger Shafer on 08/13/2021 6:30 AM [facility] Station ID: [id number]
[2021-08-13] MEDS ORDERED: LIDOCAINE VISCOUS 2% 15 ML UDC MM STA (07:48)
[2021-08-13] MEDS ORDERED: MAG HYDROX/AL HYDROX/SIMETH 30 ML UDC PO STA (07:49)
[2021-08-13] MEDS ORDERED: MORPHINE 2 MG/ML CARPUJECT IVP STA (08:21)
[2021-08-13] MEDS ORDERED: ONDANSETRON 4 MG/2 ML VIAL IVP STA (08:21)
[2021-08-13 08:46] VITALS: BP 135/80
--- NOTE | 2021-08-13 13:02 | ED Physician Documentation ---
ED Addendum - Addendum Addendum: 08/13/21 13:01 The patient called and said the pharmacy did not have receipt of the pr escriptions. I looked up under the chart and it was not clear that they had then been sent. As such I did send the noncontrolled substance and it did go through without say stating duplicate. I could not send the controlled substance under Dr. Schwab's name so I canceled that one and rewrote the prescription under my name and transmitted it to the pharmacy. Nursing Laurence will call back the patient and tell her the medicine should be available now.
== END 2021-08-13 09:43 | disposition home or self-care (01) ==
LOC: ED 05:02
DX: R07.89 Other chest pain (principal); M54.6 Pain in thoracic spine; Z99.2 Dependence on renal dialysis; I10 Essential (primary) hypertension
CPT/HCPCS: 36415; 71045; 80053; 83690; 84484; 85025; 93005; 96374; 96375; 99284; A9270

== ENCOUNTER 2021-10-02 02:59 | Outpatient (CLI) | payer MEDICARE, OTHER | END 2021-10-02 03:00 | disposition E | LOC: EMS 02:59 ==